=== PATIENT | male | born 1985 | race Caucasian/White ===

== ENCOUNTER 2022-08-09 12:19 | Emergency (ER) | payer OTHER ==
--- OUTSIDE RECORDS SUMMARY | 2022-08-09 12:23 | XMS REPORT | Continuity of Care Document ---
:1985 Author Organization [facility] t Address [address] [place] [address] Care Team Providers Name Role Phone Sabra Rios Primary Care Physician CHRETIJOHN_F Attending Clinician Unavailable PAULINE Attending Clinician Unavailable Amanda Segundo Attending Clinician [phone] Estee Izaguirre Attending Clinician [phone] Therapy, [facility] Covid Infusion Attending Clinician Unavailable Sam River MD Attending Clinician SAM RIVER Attending Clinician Unavailable Doctor Unassigned, [place] Attending Clinician Unavailable ALBERTO_Dani Attending Clinician Unavailable CHRETIJOHN_F Admitting Clinician Unavailable PAULINE Admitting Clinician Unavailable VERA Admitting Clinician Unavailable Payers Payer Name Policy Type Policy Number Effective Date Expiration Date S jann[place] [id number] 2020 00:00:00 [place] Problems Condition Condition Condition Status Onset Resolution Last Treating Co mments Source Name Details Category Date Date Treatment Clinician Date Vitamin D Vitamin D Problem Active 2018-07 Swe darrell deficiency Deficiency 0-09 Co mmuni 00:00: ty 00 [facility]ita [facility] Hyperlipid Hyperlipid Problem Active 2018-07 S elle emia emia 0-09 Communi 00:00: ty 00 [facility] Clin[facility] Generalize Generalize Problem Active 2017-07 S elle d anxiety d Anxiety 2-21 Comm uni disorder Disorder 00:00: ty 00 [facility]ospita [facility] Clinics Cataract Cataract Problem Active 2017-07 Sween y 1-12 Communi 00:00: ty 00 Hospita l Clinics Allergies, Adverse Reactions, Alerts Allergy Allergy Status Severity Reaction(s) Onset Inactive Treating Comm ents Source Name Type Date Date Clinician AMOXICIL DRUG Active Hives 2020-07 Univers ROJAS-POT 2-16 ity of CLAVULAN 00:00: [place] ATE 00 Medical Branch SULFA Drug Active Hives 2020-07 Univers (SULFONA Class 2-16 ity of MIDE 00:00: [place] ANTIBIOT 00 Medical ICS) Branch Amoxicil Propensi Active Hives 2020-07 Univer s rojas-Pot ty to 2-16 ity of Clavulan adverse 00:00: [place] ate reaction 00 Medical s Branch Sulfa Propensi Active Hives 2020-07 Univers (Sulfona ty to 2-16 ity of mide adverse 00:00: [place] Antibiot reaction 00 Medica l ics) s Branch NO KNOWN Drug Active Univers ALLERGIE Class ity of S [facility] Augmenti Allergy Active Rash [place] n to Communi substanc ty e Hospita l Clinics SULFA Allergy Active Rash [place] (SULFONA to Communi MIDE substanc ty ANTIBIOT e Hospita ICS) l Clinics Social History Social Habit Start Date Stop Date Quantity Comments Source Sex Assigned At [birth year] [facility] 00:00:00 00:00:00 [facility] Smoking Status Start Date Stop Date Source Former Smoker [facility] Unknown if ever smoked [facility] Medications Ordered Filled Start Stop Current Ordering Indication Dosage Frequency Signature Comments Components Source Medication Medication Date Date Medication? Clinician (SIG) Name Name doxycycline doxycycline 2020-07 No doxycyclin [place] hyclate 100 hyclate 100 2-21 e hyclate Communi mg tablet mg tablet 00:00: 100 mg t y TAKE ONE TAKE ONE 00 tablet Hospi ta (1) (1) TAKE ONE l TABLET(S) TABLET(S) (1) Clini cs BY MOUTH BY MOUTH TABLET(S) TWICE A DAY TWICE A DAY BY MOUTH FOR 2 FOR 2 TWICE A WEEKS. WEEKS. DAY FOR 2 WEEKS. casirivimab 2020-07 No [id number] 1200mg 1,200 mg, Univers -imdevimab 08-2416 Subcutaneo it y of (REGEN-COV 23:15: 21:50 [place], ONCE, [place] (EUA[place] 00 :00 1 dose, On Medical injection Faviola Munoz (CO-FORMULA 06/23/21 TION) 1,200 at 1715, mg Routine acetylcyste acetylcyste No 2capsul BID acetylcyst [place] ine 600 mg ine 600 mg e(s) eine 600 Communi capsule capsule mg capsule ty Take 2 Take 2 Take 2 Hospita capsules capsules capsules l twice a day twice a day twice a Clinics by oral by oral day by route. route. oral route. azithromyci azithromyci No azithromyc [place] n 500 mg n 500 mg in 500 mg Co mmuni tablet TAKE tablet TAKE tablet ty ONE (1) ONE (1) TAKE ONE Hospi ta TABLET(S) TABLET(S) (1) l BY MOUTH BY MOUTH TABLET(S) Cl inics ONCE A DAY ONCE A DAY BY MOUTH FOR 5 DAYS. FOR 5 DAYS. ONCE A DAY FOR 5 DAYS. betamethaso betamethaso No betamethas [place] ne ne one Communi dipropionat dipropionat dipropiona ty e 0.05 % e 0.05 % te 0.05 % Ho spita topical topical topical l cream APPLY cream APPLY cream Clinics TO RASH ON TO RASH ON APPLY TO HANDS TWICE HANDS TWICE RASH ON DAILY FOR 2 DAILY FOR 2 HANDS WEEKS PER WEEKS PER TWICE MONTH. MONTH. DAILY FOR OCCLUDE AT OCCLUDE AT 2 WEEKS NIGHTTIME. NIGHTTIME. PER MONTH. OCCLUDE AT NIGHTTIME. chlorthalid chlorthalid No chlorthali [place] one 25 mg one 25 mg done 25 mg Communi tablet TAKE tablet TAKE tablet ty ONE (1) ONE (1) TAKE ONE Hospi ta TABLET(S) TABLET(S) (1) l BY MOUTH BY MOUTH TABLET(S) Cl inics ONCE A DAY. ONCE A DAY. BY MOUTH ONCE A DAY. clobetasol clobetasol No clobetasol [place] 0.05 % 0.05 % 0.05 % Communi topical topical topical ty ointment ointment ointment Hos anali APPLY A APPLY A APPLY A l THIN LAYER THIN LAYER THIN LAYER Clinics TO THE TO THE TO THE HANDS TWICE HANDS TWICE HANDS A DAY FOR 2 A DAY FOR 2 TWICE A WEEKS/MONTH WEEKS/MONTH DAY FOR 2 . . WEEKS/HENRI H. fenofibrate fenofibrate No fenofibrat [place] nanocrystal nanocrystal e C ommuni lized 145 lized 145 nanocrysta ty mg tablet mg tablet llized 145 Hospita TAKE ONE TAKE ONE mg tablet l (1) (1) TAKE ONE Clinics TABLET(S) TABLET(S) (1) BY MOUTH BY MOUTH TABLET(S) ONCE A DAY. ONCE A DAY. BY MOUTH ONCE A DAY. ivermectin ivermectin No ivermectin [place] 3 mg tablet 3 mg tablet 3 mg C ommuni TAKE TWO TAKE TWO tablet ty (2) (2) TAKE TWO Hospita TABLET(S) TABLET(S) (2) l BY MOUTH BY MOUTH TABLET(S) Cl inics TWICE A DAY TWICE A DAY BY MOUTH FOR 5 DAYS. FOR 5 DAYS. TWICE A DAY FOR 5 DAYS. prednisone prednisone No prednisone [place] 20 mg 20 mg 20 mg Communi tablet TAKE tablet TAKE tablet ty ONE (1) ONE (1) TAKE ONE Hospi ta TABLET(S) TABLET(S) (1) l BY MOUTH BY MOUTH TABLET(S) Cl inics TWICE A DAY TWICE A DAY BY MOUTH FOR 5 DAYS. FOR 5 DAYS. TWICE A DAY FOR 5 DAYS. propranolol propranolol No propranolo [place] 40 mg 40 mg l 40 mg Communi tablet Take tablet Take tablet ty 1 tablet 1 tablet Take 1 Hospi ta twice a day twice a day tablet l by oral by oral twice a Clinic s route for route for day by 30 days. 30 days. oral route for 30 days. chlorthalid chlorthalid No chlorthali [place] one 25 mg one 25 mg done 25 mg Communi tablet TAKE tablet TAKE tablet ty ONE (1) ONE (1) TAKE ONE Hospi ta TABLET(S) TABLET(S) (1) l BY MOUTH BY MOUTH TABLET(S) Cl inics TWICE A TWICE A BY MOUTH DAY. DAY. TWICE A DAY. chlorthalid chlorthalid No 1 Q1D chlorthali [place] one 50 mg one 50 mg done 50 mg Communi tablet Take tablet Take tablet ty 1 tablet 1 tablet Take 1 Hospi ta every day every day tablet l by oral by oral every day Clin ics route for route for by oral 90 days. 90 days. route for 90 days. fenofibrate fenofibrate No 1 Q1D fenofibrat [place] nanocrystal nanocrystal e C ommuni lized 145 lized 145 nanocrysta ty mg tablet mg tablet llized 145 Hospita Take 1 Take 1 mg tablet l tablet tablet Take 1 Clinics every day every day tablet by oral by oral every day route for route for by oral 90 days. 90 days. route for 90 days. chlorthalid chlorthalid No chlorthali [place] one 25 mg one 25 mg done 25 mg Communi tablet TAKE tablet TAKE tablet ty ONE (1) ONE (1) TAKE ONE Hospi ta TABLET(S) TABLET(S) (1) l BY MOUTH BY MOUTH TABLET(S) Cl inics TWICE A TWICE A BY MOUTH DAY. DAY. TWICE A DAY. chlorthalid chlorthalid No 1 Q1D chlorthali [place] one 50 mg one 50 mg done 50 mg Communi tablet Take tablet Take tablet ty 1 tablet 1 tablet Take 1 Hospi ta every day every day tablet l by oral by oral every day Clin ics route for route for by oral 90 days. 90 days. route for 90 days. fenofibrate fenofibrate No 1 Q1D fenofibrat [place] nanocrystal nanocrystal e C ommuni lized 145 lized 145 nanocrysta ty mg tablet mg tablet llized 145 Hospita Take 1 Take 1 mg tablet l tablet tablet Take 1 Clinics every day every day tablet by oral by oral every day route for route for by oral 90 days. 90 days. route for 90 days. acetylcyste acetylcyste No 2capsul Q1D acetylcyst [place] ine 600 mg ine 600 mg e(s) eine 600 Communi capsule capsule mg capsule ty Take 2 Take 2 Take 2 Hospita capsules capsules capsules l every day every day every day Clinics by oral by oral by oral route. route. route. Sia Sia No Sia [place] Allergy Allergy Allergy Commun i ty Hospita l Clinics cetirizine cetirizine No 1 Q1D cetirizine [place] 10 mg 10 mg 10 mg Communi tablet Take tablet Take tablet ty 1 tablet 1 tablet Take 1 Hospi ta every day every day tablet l by oral by oral every day Clin ics route for route for by oral 90 days. 90 days. route for 90 days. chlorthalid chlorthalid No chlorthali [place] one 50 mg one 50 mg done 50 mg Communi tablet TAKE tablet TAKE tablet ty ONE (1) ONE (1) TAKE ONE Hospi ta TABLET(S) TABLET(S) (1) l BY MOUTH BY MOUTH TABLET(S) Cl inics ONCE A DAY. ONCE A DAY. BY MOUTH ONCE A DAY. doxycycline doxycycline No 1 BID doxycyclin [place] hyclate 100 hyclate 100 e hyclate Communi mg tablet mg tablet 100 mg ty Take 1 Take 1 tablet Hospita tablet tablet Take 1 l twice a day twice a day tablet Clinics by oral by oral twice a route for route for day by 10 days. 10 days. oral route for 10 days. famotidine famotidine No 1 BID famotidine [place] 20 mg 20 mg 20 mg Communi tablet Take tablet Take tablet ty 1 tablet 1 tablet Take 1 Hospi ta twice a day twice a day tablet l by oral by oral twice a Clinic s route for route for day by 90 days. 90 days. oral route for 90 days. fenofibrate fenofibrate No fenofibrat [place] nanocrystal nanocrystal e C ommuni lized 145 lized 145 nanocrysta ty mg tablet mg tablet llized 145 Hospita TAKE ONE TAKE ONE mg tablet l (1) (1) TAKE ONE Clinics TABLET(S) TABLET(S) (1) BY MOUTH BY MOUTH TABLET(S) ONCE A DAY. ONCE A DAY. BY MOUTH ONCE A DAY. prednisone prednisone No 1 BID prednisone [place] 20 mg 20 mg 20 mg Communi tablet Take tablet Take tablet ty 1 tablet 1 tablet Take 1 Hospi ta twice a day twice a day tablet l by oral by oral twice a Clinic s route for 5 route for 5 day by days. days. oral route for 5 days. Vital Signs Vital Name Observation Time Observation Value Comments Source BP Diastolic 2021-10-06 00:00:00 83 mm[Hg] [facility] s Height 2021-10-06 00:00:00 74 [in_i] [facility] s BMI (Body Mass 2021-10-06 00:00:00 28.3 kg/m2 [facility] s BP Systolic 2021-10-06 00:00:00 130 mm[Hg] [facility] s Body Weight 2021-10-06 00:00:00 3529.6 [oz_av] [facility] s BP Diastolic 2021-09-09 00:00:00 78 mm[Hg] [facility] s Height 2021-09-09 00:00:00 74 [in_i] [facility] s BMI (Body Mass 2021-09-09 00:00:00 30.7 kg/m2 [facility]) [facility] s BP Systolic 2021-09-09 00:00:00 124 mm[Hg] [facility] s Body Weight 2021-09-09 00:00:00 3827.2 [oz_av] [facility] s BP Diastolic 2021-07-06 00:00:00 101 mm[Hg] [facility] s Height 2021-07-06 00:00:00 74 [in_i] [facility] s BMI (Body Mass 2021-07-06 00:00:00 34.4 kg/m2 [facility]) [facility] s BP Systolic 2021-07-06 00:00:00 144 mm[Hg] [facility] s Body Weight 2021-07-06 00:00:00 4288 [oz_av] [facility] s Systolic blood 2021-06-23 22:40:00 166 mm[Hg] Univer sity of pressure [facility] Diastolic blood 2021-06-23 22:40:00 106 mm[Hg] Unive rsity of pressure [facility] Heart rate 2021-06-23 22:40:00 92 /min [facility] Body temperature 2021-06-23 22:40:00 [facility].11 [facility] Res[facility] 2021-06-23 22:40:00 18 /min [facility] Oxygen saturation in 2021-06-23 22:40:00 95 /min [facility] Arterial blood by [facility] Pulse oximetry Branch Body height 2021-06-23 21:51:00 188 cm [facility] Body weight 2021-06-23 21:51:00 113.399 kg [facility] BMI 2021-06-23 21:51:00 32.10 kg/m2 [facility] Procedures Procedure Date / Time Performing Clinician Source Performed [id number] CONSENT 2021-06-23 06:01:00 Doctor Unassigned, [facility] [place] [facility] Branch Exc Tr-ext B9+Cortney 0.5 Cm< [facility] Cholecystectomy [facility] Removal of Spleen Total [facility] Plan of Care Planned Activity Planned Date Details Comments Source Diagnostic Test Pending 2021-09-09 CBC w/ auto diff [facility] 00:00:00 [code = CBC w/ Hospital Clin ics auto diff] Diagnostic Test Pending 2021-09-09 CMP, serum or [facility] 00:00:00 plasma [code = Hospital Clin ics CMP, serum or plasma] Diagnostic Test Pending 2021-09-09 TSH, serum or [facility] 00:00:00 plasma [code = Hospital Clin ics TSH, serum or plasma] Diagnostic Test Pending 2021-09-09 lipid panel, [facility] 00:00:00 serum [code = Hospital Clini cs lipid panel, serum] Diagnostic Test Pending 2021-09-09 vitamin D, [facility] 00:00:00 25-hydroxy, [facility] s total, serum [code = vitamin D, 25-hydroxy, total, serum] Diagnostic Test Pending 2021-09-09 testosterone, [facility] 00:00:00 total, serum [facility] s [code = testosterone, total, serum] Instructions [facility] s Encounters Start End Encounter Admission Attending Care Care Encounter Source Date/Time Date/Time Type Type Clinicians Facility Department ID 2022-01-04 2022-01-04 Outpatient CHRETIEN_F [facility] [id number] [place] 05:46:00 05:46:00 629 Commun i ty Hospita l Clinics 2021-10-06 2021-10-06 Outpatient SANYA_S [facility] [id number] [place] 05:24:00 05:24:00 331 Commun i ty Hospita l Clinics 2021-10-06 2021-10-06 Outpatient Sanya [facility] [id number] 00:00:00 00:00:00 Amanda [id number] 2021-10-06 2021-10-06 Amanda [facility] [place] - Holden Holden 00:00:00 00:00:00 [facility] uni 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 2021-06-23 2021-06-23 Nurse Therapy, Adc Covid Infusion [facility] [id number] Univers 16:00:00 17:00:00 Visit Sam River [id number] ity [facility] [id number] [phone] [place] [id number] Branch 2021-06-23 2021-06-23 Outpatient Billie [facility] [id number] Univers 16:00:00 16:00:00 SAM [facility] 2021-06-23 2021-06-23 Orders Doctor SUBRAMANIAN [id number] Univers 00:00:00 00:00:00 Only Unassigned, GENNA [id number] ity of [place] [facility] [id number] Roni as [id number] [place] [address] Branch 2020-05-28 2020-05-28 Outpatient [facility] [id number] [place] 02:17:00 02:17:00 _L 120 Commun i ty Hospita l Clinics Results Test Description Test Time Test Comments Results Result Comments Source Lipid 1996 panel - Serum or Plasma 2021-09-10 00:00:00 Test Item Value Reference Range Interpretation Comme nts Cholesterol [Mass/volume] in Serum or Plasma (test code = 132 mg/dL [id number] 4442-3) Triglyceride [Mass/volume] in Serum or Plasma (test code = 89 mg/dL 0-149 2571-8) Cholesterol in HDL [Mass/volume] in Serum or Plasma (test code 36 m g/dL >39 L = 5-9) Cholesterol in VLDL [Mass/volume] in Serum or Plasma by 17 mg/dL 5-40 calculation (test code = 26310-5) Cholesterol in LDL [Mass/volume] in Serum or Plasma by 79 mg/dL 0-99 calculation (test code = 98520-6) Laboratory comment [Text] in Report Narrative (test code = marine engineering technicians 97525-5) Cholesterol in LDL/Cholesterol in HDL [Mass Ratio] in Serum or 2.2 ratio 0.0-3.6 Plasma (test code = 46446-9) [facility]emoglobin.total in Blood 2021-09-10 00:00:00 Test Item Value Reference Range Interpretation Comments Hemoglobin A1c/Hemoglobin.total in 5.7 % 4.8-5.6 H Blood (test code = 4548-4) [facility]Mass/volume] in Serum or Plasma 2021-09-10 00:00:00 Test Item Value Reference Range Interpretation Comments Testosterone [Mass/volume] in Serum 452 NG/dL 264-916 or Plasma (test code = 2986-8) [facility] free [Mass/volume] in Serum or [id number] 00:00:00 Test Item Value Reference Range Interpretation Comments Thyroxine (T4) free [Mass/volume] 1.50 NG/dL 0.82-1.77 in Serum or Plasma (test code = 3024-7) [facility] [Units/volume] in Serum or Plasma by Detection limit <= 0.005 mIU/[id number] 00:00:00 Test Item Value Reference Range Interpretation Comments Thyrotropin [Units/volume] in 2.430 uIU/mL 0.450-4.500 Serum or Plasma by Detection limit <= 0.005 mIU/L (test code = 09135-2) [facility]25-Hydroxyvitamin D3+25-Hydroxyvitamin D2 [Mass/volume] in Serum or [id number] 00:00:00 Test Item Value Reference Range Interpretation Comments 25-Hydroxyvitamin 48.4 NG/mL 30.0-100.0 D3+25-Hydroxyvitamin D2 [Mass/volume] in Serum or Plasma (test code = 27516-1) [facility] W Auto Differential panel - [id number] 00:00:00 Test Item Value Reference Range Interpretation Comments Leukocytes [#/volume] in Blood 7.5 x10e3/uL 3.4-10.8 by Automated count (test code = 6690-2) Erythrocytes [#/volume] in 5.21 x10e6/uL 4.14-5.80 Blood by Automated count (test code = 789-8) Hemoglobin [Mass/volume] in 15.8 g/dL 13.0-17.7 Blood (test code = 718-7) Hematocrit [Volume Fraction] of 47.2 % 37.5-51.0 Blood by Automated count (test code = 4544-3) Erythrocyte mean corpuscular 91 fL 79-97 volume [Entitic volume] by Automated count (test code = 787-2) MCH [Entitic mass] by Automated 30.3 pg 26.6-33.0 count (test code = 785-6) Erythrocyte mean corpuscular 33.5 g/dL 31.5-35.7 hemoglobin concentration [Mass/volume] by Automated count (test code = 786-4) Erythrocyte distribution width 13.6 % 11.6-15.4 [Ratio] by Automated count (test code = 788-0) Platelets [#/volume] in Blood 449 x10e3/uL 150-450 by Automated count (test code = 777-3) Neutrophils/100 leukocytes in 33 % not estab. Blood by Automated count (test code = 770-8) Lymphocytes/100 leukocytes in 53 % not estab. Blood by Automated count (test code = 736-9) Monocytes/100 leukocytes in 11 % not estab. Blood by Automated count (test code = 5905-5) Eosinophils/100 leukocytes in 2 % not estab. Blood by Automated count (test code = 713-8) Basophils/100 leukocytes in 1 % not estab. Blood by Automated count (test code = 706-2) immature cells (test code = marine engineering technicians immature cells) Neutrophils [#/volume] in Blood 2.5 x10e3/uL 1.4-7.0 by Automated count (test code = 751-8) Lymphocytes [#/volume] in Blood 3.9 x10e3/uL 0.7-3.1 H by Automated count (test code = 731-0) Monocytes [#/volume] in Blood 0.8 x10e3/uL 0.1-0.9 by Automated count (test code = 742-7) Eosinophils [#/volume] in Blood 0.2 x10e3/uL 0.0-0.4 by Automated count (test code = 711-2) Basophils [#/volume] in Blood 0.1 x10e3/uL 0.0-0.2 by Automated count (test code = 704-7) Immature granulocytes/100 0 % not estab. leukocytes in Blood by Automated count (test code = 55489-1) Immature granulocytes 0.0 x10e3/uL 0.0-0.1 [#/volume] in Blood by Automated count (test code = 69758-2) Nucleated erythrocytes/100 marine engineering technicians leukocytes [Ratio] in Blood by Automated count (test code = 62730-2) Morphology [Interpretation] in marine engineering technicians Blood Narrative (test code = 00269-2) [facility] 2000 panel - Serum or [id number] 00:00:00 Test Item Value Reference Range Interpretation Comments Glucose [Mass/volume] in Serum 101 mg/dL 65-99 H or Plasma (test code = 2345-7) Urea nitrogen [Mass/volume] in 17 mg/dL 6-20 Serum or Plasma (test code = 3094-0) Creatinine [Mass/volume] in 1.11 mg/dL 0.76-1.27 Serum or Plasma (test code = 2160-0) eGFR (test code = eGFR) 88 mL/min/1.73 >59 Urea nitrogen/Creatinine [Mass 15 9-20 Ratio] in Serum or Plasma (test code = 3097-3) Sodium [Moles/volume] in Serum 140 mmol/L 134-144 or Plasma (test code = 2951-2) Potassium [Moles/volume] in 4.2 mmol/L 3.5-5.2 Serum or Plasma (test code = 2823-3) Chloride [Moles/volume] in 96 mmol/L 96-106 Serum or Plasma (test code = 5-0) Carbon dioxide, total 25 mmol/L 20-29 [Moles/volume] in Serum or Plasma (test code = 2027-9) Calcium [Mass/volume] in Serum 9.8 mg/dL 8.7-10.2 or Plasma (test code = 48780-1) Protein [Mass/volume] in Serum 7.3 g/dL 6.0-8.5 or Plasma (test code = 2885-2) Albumin [Mass/volume] in Serum 4.6 g/dL 4.0-5.0 or Plasma (test code = 1751-7) Globulin [Mass/volume] in 2.7 g/dL 1.5-4.5 Serum by calculation (test code = 58073-3) Albumin/Globulin [Mass Ratio] 1.7 1.2-2.2 in Serum or Plasma (test code = 1759-0) Bilirubin.total [Mass/volume] 0.5 mg/dL 0.0-1.2 in Serum or Plasma (test code = 1974-) Alkaline phosphatase 41 IU/L 44-121 L [Enzymatic activity/volume] in Serum or Plasma (test code = 6768-6) Aspartate aminotransferase 20 IU/L 0-40 [Enzymatic activity/volume] in Serum or Plasma (test code = 1920-8) Alanine aminotransferase 27 IU/L 0-44 [Enzymatic activity/volume] in Serum or Plasma (test code = 1742-6) [facility]
[2022-08-09] MEDS ORDERED: NA CHLORIDE 0.9% 1,000 ML ONE ×3 (12:56→17:15)
[2022-08-09 13:22] LABS: Absolute Lymphocytes (CBC) 2.6 K/uL (0.7-4.9); Hematocrit 43.3 % (39.6-49.0); Lymphocytes % 15.5 % (15.3-44.8); MCV 91.8 fL (80-100); MPV 8.4 fL (7.6-11.3); RBC Red Blood Cell Count 4.71 M/uL (4.33-5.43)
[2022-08-09 13:38] LABS: Albumin 2.3 g/dL (3.4-5.0); Bilirubin Total 0.4 mg/dL (0.2-1.0); Potassium 3.4 mmol/L (3.5-5.1); Protein, Total 6.8 g/dL (6.4-8.2)
[2022-08-09 13:58] LABS: SARS-COV-2 RT PCR NEGATIVE (NEGATIVE)
--- NOTE | 2022-08-09 15:11 | RAD REPORT ---
EXAM DESCRIPTION: CT - Abdomen Pelvis Wo Contrast - 08/09/2022 2:36 pm CLINICAL HISTORY: Abdominal pain left upper quadrant pain COMPARISON: 2016 TECHNIQUE: Computed axial tomography of the abdomen and pelvis was obtained. IV and oral contrast we re not requested. All CT scans are performed using dose optimization technique as appropriate and may include automated exposure control or mA/KV adjustment according to patient size. FINDINGS: The evaluation of solid organs, vessels and bowel is limited secondary to the lack of con trast administration. Splenectomy. The liver, pancreas, adrenals and kidneys appear grossly normal. The appendix is normal. There is no evidence of diverticulitis. Moderate left inguinal hernia contains fat IMPRESSION: No acute abnormality is displayed.
[2022-08-09 15:18] LABS: Blood Morphology Comment NOT SEEN (NOT SEEN); Platelet Estimate ADEQ
[2022-08-09] MEDS ORDERED: dexAMETHasone 10 MG/ML VIAL ONE (15:19)
[2022-08-09] MEDS ORDERED: MAGNES/ALUMIN/SIMET 30ML UCUP ONE (17:14)
[2022-08-09] MEDS ORDERED: ONDANSETRON 4 MG/2 ML VIAL ONE (17:14)
[2022-08-09] MEDS ORDERED: LIDOCAINE VISCOUS 2% SOLN 15 ML UDC ONE (17:14)
--- NOTE | 2022-08-09 17:21 | EDPHYS ---
Physician Documentation [facility] Name: Rodrigo Hou Age: 37 yrs Sex: Male : 1985 Arrival Date: 08/09/2022 Time: 12:22 Bed DIS1 Private MD: ED Physician Yao Duncan HPI: 08/09 12:47 This 37 yrs old Male presents to ER via Ambulatory with complaints of fatigue, Sore pm1 Throat - tonsillitis. 12:47 The patient presents with sore throat. The patient describes throat pain as raw, pm1 scratchy. Onset: The symptoms/episode began/occurred 6 day(s) ago. Severity of symptoms: in the emergency department the symptoms are unchanged. Modifying factors: Denies contact with similarly ill indivduals. Associated signs and symptoms: Pertinent positives: Poor p.o. intake, abdominal pain left upper quadrant. Patient reports black stool this morning 1 time. Patient took Pepto-Bismol for his abdominal pain recently, Pertinent negatives cough, fever. The patient has not experienced similar symptoms in the past. Patient was prescribed antibiotics on Sunday for a diagnosis of tonsillitis. Presented to the ER due to concerns that he has not improved after 2 days as expected of antibiotics. Patient was tested for strep COVID and flu at the clinic on Sunday. 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 - Social history:: Smoking status: Patient denies any tobacco usage or history of. ROS: 12:47 Eyes: Negative for injury, pain, redness, and discharge. pm1 12:47 Neck: Negative for injury, pain, and swelling, Cardiovascular: Negative for chest pain, palpitations, and edema, Respiratory: Negative for shortness of breath, cough, wheezing, and pleuritic chest pain. 12:47 Back: Negative for injury and pain, : Negative for injury, bleeding, discharge, and swelling, MS/Extremity: Negative for injury and deformity, Skin: Negative for injury, rash, and discoloration, Neuro: Negative for headache, weakness, numbness, tingling, and seizure. 12:47 Constitutional: Positive for fatigue, poor PO intake. 12:47 ENT: Positive for sore throat. 12:47 Abdomen/GI: Positive for abdominal pain, of the left upper quadrant, Nausea with eating, Negative for vomiting, diarrhea. 12:47 All other systems are negative. Exam: 12:47 Constitutional: This is a well developed, well nourished patient who is awake, alert, pm1 and in no acute distress. Head/Face: Normocephalic, atraumatic. 12:47 Back: No spinal tenderness. No costovertebral tenderness. Full range of motion. Skin: Warm, dry with normal turgor. Normal color with no rashes, no lesions, and no evidence of cellulitis. MS/ Extremity: Pulses equal, no cyanosis. Neurovascular intact. Full, normal range of motion. 12:47 Eyes: Exam is negative for acute changes, Periorbital structures: no acute changes, Extraocular movements: no acute changes, Conjunctiva: no acute changes, no injection. 12:47 ENT: Posterior pharynx: Airway: no evidence of obstruction, Tonsils: bilaterally enlarged, with erythema, with exudate, no ulcerations, peritonsillar mass, is not appreciated. 12:47 Neck: Lymph nodes: no appreciated lymphadenopathy. 12:47 Cardiovascular: Rate: tachycardic, Rhythm: regular, Pulses: no pulse deficits are appreciated, Heart sounds: normal, normal S1and S2. 12:47 Respiratory: Exam negative for acute changes, respiratory distress, shortness of breath, Breath sounds: are clear throughout. 12:47 Neuro: Exam negative for acute changes, Orientation: is normal, Mentation: is normal, Motor: is normal, moves all fours. Vital Signs: 12:25 BP 102 / 63; Pulse 119; Resp 20; Temp 99.0(O); Pulse Ox 97% on R/A; Weight 113.4 kg; ll1 Height 6 ft. 2 in. (187.96 cm); Pain 7/10; 13:20 BP 115 / 77; Pulse 95; Resp 18; Pulse Ox 97% on R/A; vg1 14:00 BP 120 / 78; Pulse 85; Resp 16; Pulse Ox 97% on R/A; vg1 15:15 BP 126 / 80; Pulse 87; Resp 14; Pulse Ox 98% ; vg1 15:25 Temp 98.3(O); vg1 16:00 BP 127 / 80; Pulse 86; Resp 15; Pulse Ox 100% on R/A; vg1 16:30 BP 140 / 85; Pulse 81; Resp 16; Pulse Ox 96% ; vg1 17:00 BP 131 / 90; Pulse 88; Resp 16; Pulse Ox 97% on R/A; vg1 17:12 BP 132 / 92; Pulse 95; Resp 16; Pulse Ox 98% on R/A; vg1 12:25 Body Mass Index 32.10 (113.40 kg, 187.96 cm) ll1 MDM: 12:30 Patient medically screened. pm1 14:30 Data reviewed: vital signs. pm1 14:30 Counseling: I had a detailed discussion with the patient and/or guardian regarding: lab pm1 results, reexamined abdomen and patient with tenderness to left upper quadrant. 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 With elevated white count will scan abdomen pelvis without contrast due to dehydration present. Will give patient additional IV fluids. Patient responded well to initial 1 L, tachycardia resolved to heart rate in the 80s. 14:30 Test considered but Not performed: Other Details CT soft tissue neck. Patient without pm1 peritonsillar swelling. Negative for shortness of breath. Patient is able to swallow. Negative for trismus, drooling, or swelling. Clinically patient has tonsillitis. 14:30 Differential diagnosis: pharyngitis, tonsillitis, strep, retropharyngeal abscess, pm1 peritonsillar abscess. 17:03 Counseling: I had a detailed discussion with the patient and/or guardian regarding: the pm1 historical points, exam findings, and any diagnostic results supporting the discharge/admit diagnosis, lab results, radiology results, the need for outpatient follow up, to return to the emergency department if symptoms worsen or persist or if there are any questions or concerns that arise at home. 08/09 12:46 Order name: Strep; Complete Time: 14:13 pm1 08/09 12:46 Order name: COVID-19/FLU A+B; Complete Time: 14:13 pm1 08/09 12:46 Order name: CBC with Diff; Complete Time: 15:31 pm1 08/09 12:46 Order name: CMP; Complete Time: 14:13 pm1 08/09 12:46 Order name: [place] Screen Profile; Complete Time: 14:13 pm1 08/09 13:39 Order name: Throat Culture EDMS 08/09 14:24 Order name: CT Abd/Pelvis - Without Contrast; Complete Time: 15:31 pm1 08/09 15:18 Order name: Manual Differential; Complete Time: 15:31 EDMS Administered Medications: 13:19 Drug: NS 0.9% 1000 ml Route: IV; Rate: 1000 ml; Site: right hand; vg1 14:08 Follow up: IV Status: Completed infusion; IV Intake: 1000ml vg1 14:25 Drug: NS 0.9% 1000 ml Route: IV; Rate: 1000 ml; Site: right hand; vg1 16:13 Follow up: IV Status: Completed infusion; IV Intake: 1000ml vg1 15:18 Drug: Decadron (dexamethasone) 10 mg Route: IM; Site: right deltoid; vg1 16:12 Follow up: Response: No adverse reaction vg1 17:14 Drug: GI Cocktail without - (Maalox Suspension 30 ml, Lidocaine Liquid 2 % 15 vg1 ml) Route: PO; 18:25 Follow up: Response: No adverse reaction; Marked relief of symptoms vg1 17:15 Drug: NS 0.9% 1000 ml Route: IV; Rate: 1000 ml; Site: right hand; vg1 18:25 Follow up: IV Status: Completed infusion; IV Intake: 1000ml vg1 17:15 Drug: Zofran (Ondansetron) 4 mg Route: IVP; Site: right hand; vg1 18:25 Follow up: Response: No adverse reaction; Marked relief of symptoms vg1 Disposition: 18:39 Co-signature as Attending Physician, Yao Duncan MD I agree with the assessment and kdr plan of care. Disposition Summary: 08/09/22 17:21 Discharge Ordered Location: Home pm1 Problem: new pm1 Symptoms: have improved pm1 Condition: Stable pm1 Diagnosis - Acute tonsillitis, unspecified pm1 - Abdominal pain, unspecified pm1 - Dehydration pm1 Followup: pm1 - With: Emergency Department - When: As needed - Reason: Worsening of condition Followup: pm1 - With: Private Physician - When: 2 - 3 days - Reason: Recheck today's complaints, Continuance of care, Re-evaluation by your physician Discharge Instructions: - Discharge Summary Sheet pm1 - Abdominal Pain, Adult pm1 - Dehydration, Adult pm1 - Tonsillitis pm1 - Rehydration, Adult pm1 Forms: - Medication Reconciliation Form pm1 - Thank You Letter pm1 - Antibiotic Education pm1 - Prescription Opioid Use pm1 Prescriptions: - ondansetron 4 mg Oral - take 4 milligrams by SUBLINGUAL route every 8 hours; 15 tablet; Refills: 0, pm1 Product Selection Permitted Signatures: Dispatcher [employer] EDCA Yao Duncan MD MD kdr Marinas, Patrick, NP COMPUTATIONAL SCIENTIST pm1 Gilda Valle RN RN vg1 Andrea Machuca RN RN ll1
--- NOTE | 2022-08-09 17:21 | ER ---
Nurse's Notes [facility] Name: Rodrigo Hou Age: 37 yrs Sex: Male : 1985 Arrival Date: 08/09/2022 Time: 12:22 Bed DIS1 Private MD: Diagnosis: Acute tonsillitis, unspecified;Abdominal pain, unspecified;Dehydration Presentation: 08/09 12:25 Chief complaint: Patient states: Fatigue, sore throat, fever since Sunday. On ll1 antibiotics since Sunday, not better yet. Black stool and abd pains noted today. No appetite. Coronavirus screen: Vaccine status: Patient reports receiving the 2nd dose of the covid vaccine. Client denies travel out of the [place] in the last 14 days. fatigue, fever, headache, sore throat, Client presents with at least one sign or symptom that may indicate coronavirus-19. Standard/surgical mask placed on the client. Ebola Screen: Patient denies travel to an Ebola-affected area in the 21 days before illness onset. Initial Sepsis Screen: Does the patient meet any 2 criteria? HR > 90 bpm. No. Patient's initial sepsis screen is negative. Does the patient have a suspected source of infection? Yes: Other: throat. Risk Assessment: Do you want to hurt yourself or someone else? Patient reports no desire to harm self or others. Onset of symptoms was August 04, 2022. 12:25 Method Of Arrival: Ambulatory [facility] 12:25 Acuity: AQUILES 2 ll1 Triage Assessment: 12:29 General: Appears uncomfortable, ill, Behavior is calm, cooperative, appropriate for [facility] age. Pain: Complains of pain in throat Pain currently is 7 out of 10 on a pain scale. Quality of pain is described as aching. EENT: Reports pain when swallowing. Neuro: Reports weakness. Cardiovascular: Reports fatigue, palpitations. GI: Reports black stool today. 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 - Social history:: Smoking status: Patient denies any tobacco usage or history of. Screenin:40 [facility] ED Fall Risk Assessment (Adult) History of falling in the last 3 months, vg1 including since admission No falls in past 3 months (0 pts) Confusion or Disorientation No (0 pts) Intoxicated or Sedated No (0 pts) Impaired Gait No (0 pts) Mobility Assist Device Used No (0 pt) Altered Elimination No (0 pt) Score/Fall Risk Level 0 - 2 = Low Risk Oriented to surroundings, Maintained a safe environment, Educated pt \T\ family on fall prevention, incl call for assistance when getting out of bed, Assessed \T\ reinforced patient's understanding of fall precautions. Abuse screen: Denies threats or abuse. Denies injuries from another. Nutritional screening: No deficits noted. Tuberculosis screening: No symptoms or risk factors identified. Assessment: 12:40 General: Appears in no apparent distress. uncomfortable, Behavior is calm, cooperative. vg1 Pain: Complains of pain in epigastric area and left upper quadrant, left flank, throat Pain currently is 7 out of 10 on a pain scale. Pain began 2-3 days ago. Neuro: Level of Consciousness is awake, alert, obeys commands, Oriented to person, place, time, situation. Cardiovascular: Patient's skin is warm and dry. Respiratory: Airway is patent Respiratory effort is even, unlabored, Breath sounds are clear bilaterally. GI: Abdomen is tender to palpation in epigastric area and left upper quadrant Reports nausea, Patient currently denies vomiting. : No signs and/or symptoms were reported regarding the genitourinary system. EENT: Throat is reddened has enlarged tonsils bilaterally with gag reflex present. Derm: Skin is pink, warm \T\ dry. Musculoskeletal: Circulation, motion, and sensation intact. 14:08 Reassessment: Patient appears in no apparent distress at this time. No changes from vg1 previously documented assessment. Patient and/or family updated on plan of care and expected duration. Pain level reassessed. Patient is alert, oriented x 3, equal unlabored respirations, skin warm/dry/pink. 15:21 Reassessment: Patient appears in no apparent distress at this time. Patient and/or vg1 family updated on plan of care and expected duration. Pain level reassessed. Patient is alert, oriented x 3, equal unlabored respirations, skin warm/dry/pink. Patient states feeling better. 16:16 Reassessment: Patient appears in no apparent distress at this time. No changes from vg1 previously documented assessment. Patient and/or family updated on plan of care and expected duration. Pain level reassessed. Patient is alert, oriented x 3, equal unlabored respirations, skin warm/dry/pink. 17:19 Reassessment: Patient appears in no apparent distress at this time. No changes from vg1 previously documented assessment. Patient is alert, oriented x 3, equal unlabored respirations, skin warm/dry/pink. 17:23 Reassessment: Pt up for d/c, currently waiting for IV fluids to complete. vg1 18:25 Reassessment: Patient appears in no apparent distress at this time. Patient and/or vg1 family updated on plan of care and expected duration. Pain level reassessed. Patient is alert, oriented x 3, equal unlabored respirations, skin warm/dry/pink. Patient denies pain at this time. Patient states feeling better. Vital Signs: 12:25 BP 102 / 63; Pulse 119; Resp 20; Temp 99.0(O); Pulse Ox 97% on R/A; Weight 113.4 kg; ll1 Height 6 ft. 2 in. (187.96 cm); Pain 7/10; 13:20 BP 115 / 77; Pulse 95; Resp 18; Pulse Ox 97% on R/A; vg1 14:00 BP 120 / 78; Pulse 85; Resp 16; Pulse Ox 97% on R/A; vg1 15:15 BP 126 / 80; Pulse 87; Resp 14; Pulse Ox 98% ; vg1 15:25 Temp 98.3(O); vg1 16:00 BP 127 / 80; Pulse 86; Resp 15; Pulse Ox 100% on R/A; vg1 16:30 BP 140 / 85; Pulse 81; Resp 16; Pulse Ox 96% ; vg1 17:00 BP 131 / 90; Pulse 88; Resp 16; Pulse Ox 97% on R/A; vg1 17:12 BP 132 / 92; Pulse 95; Resp 16; Pulse Ox 98% on R/A; vg1 12:25 Body Mass Index 32.10 (113.40 kg, 187.96 cm) 1 ED Course: 12:22 Patient arrived in ED. as 12:23 Mario Luna NP is PHCP. pm1 12:23 Yao Duncan MD is Attending Physician. pm1 12:28 Triage completed. ll1 12:29 Arm band placed on Patient placed in an exam room, on a stretcher. ll1 12:30 Gilda Valle RN is Primary Nurse. vg1 12:40 Patient has correct armband on for positive identification. Bed in low position. Call vg1 light in reach. Side rails up X 1. Adult w/ patient. Pulse ox on. NIBP on. 12:40 No provider procedures requiring assistance completed. vg1 13:00 Missed attempt(s): 20 gauge in right antecubital area. vg1 13:19 Inserted saline lock: 20 gauge in right hand, using aseptic technique. ,using aseptic vg1 technique. completed by [facility] stocking inspector. 14:37 CT Abd/Pelvis - Without Contrast In Process Unspecified. EDMS 18:26 IV discontinued, intact, bleeding controlled, No redness/swelling at site. Pressure vg1 dressing applied. Administered Medications: 13:19 Drug: NS 0.9% 1000 ml Route: IV; Rate: 1000 ml; Site: right hand; vg1 14:08 Follow up: IV Status: Completed infusion; IV Intake: 1000ml vg1 14:25 Drug: NS 0.9% 1000 ml Route: IV; Rate: 1000 ml; Site: right hand; vg1 16:13 Follow up: IV Status: Completed infusion; IV Intake: 1000ml vg1 15:18 Drug: Decadron (dexamethasone) 10 mg Route: IM; Site: right deltoid; vg1 16:12 Follow up: Response: No adverse reaction vg1 17:14 Drug: GI Cocktail without - (Maalox Suspension 30 ml, Lidocaine Liquid 2 % 15 vg1 ml) Route: PO; 18:25 Follow up: Response: No adverse reaction; Marked relief of symptoms vg1 17:15 Drug: NS 0.9% 1000 ml Route: IV; Rate: 1000 ml; Site: right hand; vg1 18:25 Follow up: IV Status: Completed infusion; IV Intake: 1000ml vg1 17:15 Drug: Zofran (Ondansetron) 4 mg Route: IVP; Site: right hand; vg1 18:25 Follow up: Response: No adverse reaction; Marked relief of symptoms vg1 Medication: 12:40 VIS not applicable for this client. vg1 Intake: 14:08 IV: 1000ml; Total: 1000ml. vg1 16:13 IV: 1000ml; Total: 2000ml. vg1 18:25 IV: 1000ml; Total: 3000ml. vg1 Outcome: 17:21 Discharge ordered by . pm1 18:26 Discharged to home ambulatory, with family. vg1 18:26 Condition: good 18:26 Discharge instructions given to patient, Instructed on discharge instructions, follow up and referral plans. medication usage, Demonstrated understanding of instructions, follow-up care, medications, Prescriptions given X 1. 18:27 Patient left the ED. vg1 Signatures: Dispatcher [employer] EDMS Eliza Kaiser Patrick, NP HAZARDOUS WASTE MANAGEMENT SPECIALIST pm1 Gilda Valle RN RN vg1 Andrea Machuca RN RN ll1 Corrections: (The following items were deleted from the chart) 12:35 12:25 BP 102 / 63; Pulse 119bpm; Resp 20bpm; Pulse Ox 97% RA; Temp 99.0F; 113.4 kg; ll1 Height 6 ft. 2 in.; BMI: 32.1; Pain 7/10; ll1 17:23 17:12 BP 132 / 292; Pulse 95bpm; Resp 16bpm; Pulse Ox 98% RA; vg1 vg1
[2022-08-09 19:14] VITALS: TEMP 98.3
[2022-08-09 19:19] VITALS: BP 132/92; O2SAT 98
[2022-08-09] MEDS ORDERED: HYDRALAZINE HCL 20 MG/ML VIAL ONE (19:47)
== END 2022-08-09 18:27 | disposition home or self-care (01) ==
LOC: ER 12:19
DX: J03.90 Acute tonsillitis, unspecified (principal); E86.0 Dehydration; R10.12 Left upper quadrant pain; Z20.822 Contact with and (suspected) exposure to COVID-19; Z88.1 Allergy status to other antibiotic agents; Z88.2 Allergy status to sulfonamides
CPT/HCPCS: 87070; 85025; 36415; 86308; 87081; 80053; 0240U; 74176; J0360; J1100; J7030 ×3; J2405

== ENCOUNTER → 2023-08-29 | Emergency (ER) | payer OTHER ==
[~2023-08-29] MED LIST: KETOROLAC 30 MG/ML INJ ONE; MORPHINE 4 MG/ML SYR ONE; NA CHLORIDE 0.9% 1,000 ML ONE; ONDANSETRON 4 MG/2 ML VIAL ONE; methocarbamoL 500 MG TAB ONE
--- OUTSIDE RECORDS SUMMARY | 2023-08-29 14:25 | XMS REPORT | Continuity of Care Document ---
Author Name Unknown Address [address] [facility] [address] [place] [address] [facility] Address [address] [facility] [address] [place] [address] Care Team Providers Care Bottom Polisher Name Role Phone Sabra Rios Primary Care Physician + [phone] CLARK PEREZ Attending Clinician Unava CHINEDU Wills Attending Clinician Unavailable BARI RAMOS Attending Clinician Unavailable LAB90 Attending Clinician Unavailable CHRETIEN_F Attending Clinician Unavailable SANYA_Amberly Attending Clinician Unavailable Amanda Segundo Attending Clinician [phone] Estee Izaguirre Attending Clinician [phone] Therapy, [facility] Attending Clinician Unavailable Sam River MD Attending Clinician [phone] SAM RIVER Attending Clinician Unavailable Doctor Unassigned, [place] Attending Clinician U navailable ALBERTO_L Attending Clinician Unavailable CHRETIEN_F Admitting Clinician Unavailable SANYA_S Admitting Clinician Unavailable ALBERTO_Dani Admitting Clinician Unavailable Payers Payer Name Policy Type Policy Number Effective Date Expirati on Date Source AETNA 2 [id number] 2023 00:00:00 CIGNA 2 [id number] 2022 00:00:[place] [id number] 2020 00:00:00 Problems Condition Name Condition Details Condition Category Status Onset Date Resolution Date Last Treatment Date Treating Clinician Comments Source Anxiety Anxiety Disease Active 09-27 00:00: 00 Kiah Semeliaold - Externa l Prediabete s Prediabete s Disease Active 08-30 00:00: 00 Kiah Diaold - Externa l Elevated platelet count Elevated platelet count Disease Active 08-30 00:00: 00 Kiah Diaold - Externa l Dyspnea on exertion Dyspnea on exertion Disease Active 08-23 00:00: 00 Kiah Diaold - Externa l Renal insufficie ncy Renal insufficie ncy Disease Active 08-23 00:00: 00 Kiah Seybold - Externa l Class 1 obesity due to excess calories without serious comorbidit y with body mass index (BMI) of 33.0 to 33.9 in adult Class 1 obesity due to excess calories without serious comorbidit y with body mass index (BMI) of 33.0 to 33.9 in adult Disease Active 08-16 00:00: 00 Kiah Diaold - Externa l Class 1 obesity due to excess calories without serious comorbidit y with body mass index (BMI) of 33.0 to 33.9 in adult Class 1 obesity due to excess calories without serious comorbidit y with body mass index (BMI) of 33.0 to 33.9 in adult Disease Active 08-16 00:00: 00 Kiah Diaold - Externa l History of ITP History of ITP Disease Active 08-16 00:00: 00 Kiah Aviles - Externa l Primary hypertensi on Primary hypertensi on Disease Active 08-16 00:00: 00 Kiah Diaold - Externa l Mixed hyperlipid emia Mixed hyperlipid emia Disease Active 08-16 00:00: 00 Kiah Diaold - Externa l Acute bacterial conjunctiv itis of both eyes Acute bacterial conjunctiv itis of both eyes Disease Active 08-16 00:00: 00 Kiah Seybold - Externa l Tonsilliti s Tonsilliti s Disease Active 08-16 00:00: 00 Kiah Diaold - Externa l Gastroesop hageal reflux disease without esophagiti s Gastroesop hageal reflux disease without esophagiti s Disease Active 08-16 00:00: 00 Kiah Aviles - Externa l History of splenectom y History of splenectom y Disease Active 08-16 00:00: 00 Kiah Aviles - Externa l Intrinsic eczema Intrinsic eczema Disease Active 08-16 00:00: 00 Kiah Aviles - Externa l Vitamin D deficiency Vitamin D Deficiency Problem Active 2018-07 00:00: 00 [facility] Hyperlipid emia Hyperlipid emia Problem Active 2018-07 00:00: 00 [facility] Generalize d anxiety disorder Generalize d Anxiety Disorder Problem Active 2017-07 00:00: 00 [facility] Cataract Cataract Problem Active 2017-07 00:00: 00 [facility] Allergies, Adverse Reactions, Alerts Allergy Name Allergy Type Status Severity Reaction(s) Onset Date Inactive Date Treating Clinician Comments Source Penicill ins Propensi ty to adverse reaction s Active Hives 08-29 00:00: 00 Kiah Aviles - Externa l Augmenti n Propensi ty to adverse reaction s Active 08-15 00:00: 00 Kiah Aviles - Externa l Sulfa Drugs Propensi ty to adverse reaction s Active 08-15 00:00: 00 Kiah Aviles - Externa l Amoxicil rojas-Pot Clavulan ate Propensi ty to adverse reaction s Active Hives 2020-07 00:00: 00 Kiah Aviles - Externa l AMOXICIL ROJAS-POT CLAVULAN ATE DRUG Active Hives 2020-0716 00:00: 00 [facility] SULFA (SULFONA MIDE ANTIBIOT ICS) Drug Class Active Hives 2020-07 00:00: 00 [facility] Sulfa (Sulfona mide Antibiot ics) Propensi ty to adverse reaction s Active Hives 2020-07 00:00: 00 [facility] Augmenti n Allergy to substanc e Active [facility] SULFA (SULFONA MIDE ANTIBIOT ICS) Allergy to substanc e Active [facility] NO KNOWN ALLERGIE S Drug Class Active [facility] Social History Social Habit Start Date Stop Date Quantity Comments Source History SDOH Alcohol Frequency Kiah manzo - External History SDOH Alcohol Std Drinks Kiah sosa - External History SDOH Alcohol Binge Kiah Aviles - External Sexual orientation Art Aviles - External History of tobacco use Cigarette Smoker Kiah swenson - External Tobacco use and exposure 2023-08-29 00:00:00 2023-08-29 00:00:00 Smokeless tobacco non-user Kiah Aviles - External Alcohol intake 2023-08-29 00:00:00 2023-08-29 00:00:00 Current drinker of alcohol (finding) Kiah Aviles - External Cigarettes smoked current (pack per day) - Reported 2023-08-29 00:00:00 2023-08-29 00:00:00 Kiah Aviles - External Cigarette pack-years 2023-08-29 00:00:00 2023-08-29 00:00:00 Kiah Aviles - External History of Social function 2023-04-08 00:00:00 2023-04-08 00:00:00 Kiah Aviles - External Alcohol Comment 2022-08-16 00:00:00 2022-08-16 00:00:00 socially Kiah Aviles - External Education - What is the highest level of school you have completed or the highest degree you have received? 2022-08-16 00:00:00 2022-08-16 00:00:00 Bachelor's degree (e.g., BA, AB, BS) Kiah Aviles - External Sex Assigned At 1985 00:00:00 1985 00:00:00 Kiah Aviles - External Smoking Status Start Date Stop Date Source Unknown if ever smoked [facility] Ex-smoker 2023-08-29 00:00:00 2023-08-29 00:00:00 Art Aviles - External Medications Ordered Medication Name Filled Medication Name Start Date Stop Date Current Medication? Ordering Clinician Indication Dosage Frequency Signature (SIG) Comments Components Source FLUTICASONE PROPIONATE, NASAL, 50 MCG/ACT nasal Suspension 08-29 13:48: 29 Yes 50ug Use 1 spray (50 mcg total) in each nostril daily. Kiah macias Fexofenadin e (SIA) 180 MG oral Tablet 08-29 13:48: 29 Yes 180mg Take 1 tablet (180 mg total) by mouth. Kiah macias Omeprazole 10 MG oral Delayed Release Capsule 08-29 13:48: 29 Yes 10mg Take 1 capsule (10 mg total) by mouth daily. Kiah macias Dupilumab 100 MG/0.67ML subcutaneou s Solution Prefilled Syringe 08-29 13:48: 29 Yes Inject 1 applicatio n into the skin every other week Kiah macias Semaglutide -Weight Management (Wegovy) 0.25 MG/0.5ML subcutaneou s Solution Auto-inject or 08-29 00:00: 00 Yes [id number] .25mg Inject 0.25 mg into the skin once a week. Kiah macias Metoprolol Tartrate (LOPRESSOR) 25 MG oral Tablet 2022-07 00:00: 00 Yes [id number] 25mg Take 1 tablet (25 mg total) by mouth daily. Kiah macias Dupixent 300 MG/2ML subcutaneou s Solution Pen-injecto r 10-04 00:00: 00 Yes Kiah macias FLUTICASONE PROPIONATE, NASAL, 50 MCG/ACT nasal Suspension 09-27 15:40: 25 Yes 1{spray } Use 1 spray in each nostril daily Kiah macias Fexofenadin e (SIA) 180 MG oral Tablet 09-27 15:40: 25 Yes 1{tbl} Take 1 tablet by mouth Kiah macias Omeprazole 10 MG oral Delayed Release Capsule 09-27 15:40: 25 Yes 10mg Take 10 mg by mouth daily Kiah macias Dupilumab 100 MG/0.67ML subcutaneou s Solution Prefilled Syringe 09-27 15:40: 25 Yes Inject 1 applicatio n into the skin every other week Kiah macias Metoprolol Tartrate (LOPRESSOR) 25 MG oral Tablet 09-27 00:00: 00 Yes [id number] 25mg Take 1 tablet (25 mg total) by mouth daily Kiah macias Semaglutide (0.25 or 0.5 mg/dose) 2 mg/1.5 mL SQ Solution Pen-Injecto r 09-27 00:00: 00 Yes [id number] .25mg Inject 0.25 mg into the skin once a week Kiah macias Paroxetine HCl 10 MG oral Tablet 09-27 00:00: 00 Yes [id number] 10mg Take 1 tablet (10 mg total) by mouth every morning Kiah macias Semaglutide (0.25 or 0.5 mg/dose) 2 mg/1.5 mL SQ Solution Pen-Injecto r 09-27 00:00: 00 Yes [id number] .25mg Inject 0.25 mg into the skin once a week Kiah macias Paroxetine HCl 10 MG oral Tablet 09-27 00:00: 00 08-29 00:00 :00 No [id number] 10mg Take 1 tablet (10 mg total) by mouth every morning Kiah macias Doxycycline Monohydrate 100 MG oral Capsule 09-17 00:00: 00 Yes TAKE ONE (1) CAPSULE(S) BY MOUTH EVERY TWELVE HOURS FOR 7 DAYS. Kiah macias Doxycycline Monohydrate 100 MG oral Capsule 09-17 00:00: 00 08-29 00:00 :00 No TAKE ONE (1) CAPSULE(S) BY MOUTH EVERY TWELVE HOURS FOR 7 DAYS. Kiah macias FLUTICASONE PROPIONATE, NASAL, 50 MCG/ACT nasal Suspension 08-30 09:31: 54 Yes 1{spray } Use 1 spray in each nostril daily Kiah macias Fexofenadin e (SIA) 180 MG oral Tablet 08-30 09:31: 54 Yes 1{tbl} Take 1 tablet by mouth Kiah macias Omeprazole 10 MG oral Delayed Release Capsule 08-30 09:31: 54 Yes 10mg Take 10 mg by mouth daily Kiah macias Dupilumab 100 MG/0.67ML subcutaneou s Solution Prefilled Syringe 08-30 09:31: 54 Yes Inject 1 applicatio n into the skin every other week Kiah macias Metoprolol Tartrate (LOPRESSOR) 25 MG oral Tablet 08-23 00:00: 00 Yes [id number] 25mg Take 1 tablet (25 mg total) by mouth 2 times daily Kiah macias Metoprolol Tartrate (LOPRESSOR) 25 MG oral Tablet 08-23 00:00: 00 Yes [id number] 25mg Take 1 tablet (25 mg total) by mouth 2 times daily Kiah macias Metoprolol Tartrate (LOPRESSOR) 25 MG oral Tablet 08-23 00:00: 00 09-27 00:00 :00 No [id number] 25mg Take 1 tablet (25 mg total) by mouth 2 times daily Kiah macias Metoprolol Tartrate (LOPRESSOR) 25 MG oral Tablet 08-23 00:00: 00 08-23 00:00 :00 No [id number] 25mg Take 1 tablet (25 mg total) by mouth 2 times daily Kiah macias Neomycin-Po lymyxin-Dex ameth 3.5-72502-2 .1 ophthalmic Ointment 08-22 00:00: 00 Yes INSTILL ONE-HALF (1/2) INCH IN BOTH EYES EVERY TWELVE HOURS FOR 7 DAYS. Kiah macias Neomycin-Po lymyxin-Dex ameth 3.5-26308-3 .1 ophthalmic Ointment 08-22 00:00: 00 Yes INSTILL ONE-HALF (1/2) INCH IN BOTH EYES EVERY TWELVE HOURS FOR 7 DAYS. Kiah macias Neomycin-Po lymyxin-Dex ameth 3.5-45450-6 .1 ophthalmic Ointment 08-22 00:00: 00 09-27 00:00 :00 No INSTILL ONE-HALF (1/2) INCH IN BOTH EYES EVERY TWELVE HOURS FOR 7 DAYS. Kiah macias Dupilumab 100 MG/0.67ML subcutaneou s Solution Prefilled Syringe 08-16 16:46: 34 Yes Inject 1 applicatio n into the skin every other week Kiah macias Omeprazole 10 MG oral Delayed Release Capsule 08-16 16:32: 01 Yes 10mg Take 10 mg by mouth daily Kiah macias Omeprazole 10 MG oral Delayed Release Capsule 08-16 16:32: 01 Yes 10mg Take 10 mg by mouth daily Kiah macias Fenofibrate 145 MG oral Tablet 08-16 16:26: 28 08-16 00:00 :00 No fenofibrat e nanocrysta llized 145 mg tablet TAKE ONE (1) TABLET(S) BY MOUTH ONCE A DAY. Kiah macias Chlorthalid one 50 MG oral Tablet 08-16 16:26: 28 08-16 00:00 :00 No chlorthali done 50 mg tablet TAKE ONE (1) TABLET(S) BY MOUTH ONCE A DAY. Kiah macias Aspirin 81 MG oral Tablet Delayed Response 08-16 16:23: 06 08-16 00:00 :00 No 81mg Take 81 mg by mouth daily Kiah macias Acetylcyste ine 600 MG oral Capsule 08-16 16:21: 44 08-16 00:00 :00 No 2{capsu le} 2 capsules daily Kiah macias Cetirizine (ZYRTEC) 10 MG oral Tablet 08-16 16:21: 28 08-16 00:00 :00 No 10mg Take 10 mg by mouth daily Kiah macias Doxycycline Hyclate 100 MG oral Tablet 08-16 16:21: 22 08-16 00:00 :00 No doxycyclin e hyclate 100 mg tablet TAKE ONE (1) TABLET(S) BY MOUTH TWICE A DAY. Kiah macias Famotidine (PEPCID) 20 MG oral tablet 08-16 16:21: 16 08-16 00:00 :00 No famotidine 20 mg tablet TAKE ONE (1) TABLET(S) BY MOUTH TWICE A DAY. Kiah macias Fexofenadin e (Sia Allergy) 180 MG oral Tablet 08-16 16:21: 02 08-16 00:00 :00 No Sia Allergy Kiah macias Paroxetine HCl 20 MG oral Tablet 08-16 16:20: 09 08-16 00:00 :00 No 1{tbl} Take 1 tablet by mouth Kiah macias predniSONE (DELTASONE) 20 MG oral tablet 08-16 16:19: 13 08-16 00:00 :00 No prednisone 20 mg tablet TAKE ONE (1) TABLET(S) BY MOUTH TWICE A DAY FOR 5 DAYS. Kiah macias Fexofenadin e (SIA) 180 MG oral Tablet 08-16 16:08: 53 Yes 1{tbl} Take 1 tablet by mouth Kiah macias Fexofenadin e (SIA) 180 MG oral Tablet 08-16 16:08: 53 Yes 1{tbl} Take 1 tablet by mouth Kiah macias Fenofibrate 145 MG oral Tablet 08-16 00:00: 00 Yes [id number] 145mg Take 1 tablet (145 mg total) by mouth daily Kiah macias Fenofibrate 145 MG oral Tablet 08-16 00:00: 00 Yes [id number] 145mg Take 1 tablet (145 mg total) by mouth daily Kiah macias Fenofibrate 145 MG oral Tablet 08-16 00:00: 00 Yes [id number] 145mg Take 1 tablet (145 mg total) by mouth daily Kiah macias Chlorthalid one 25 MG oral Tablet 0 2 00:00: 00 Yes [id number] 25mg Take 1 tablet (25 mg total) by mouth daily Kiah macias Fenofibrate 145 MG oral Tablet 0 2 00:00: 00 Yes [id number] 145mg Take 1 tablet (145 mg total) by mouth daily Kiah mcaias Fenofibrate 145 MG oral Tablet 0 08-16 00:00: 00 Yes [id number] 145mg Take 1 tablet (145 mg total) by mouth daily Kiah macias Ciprofloxac in HCl 0.3 % ophthalmic Solution 08-16 00:00: 00 09-27 00:00 :00 No [id number] 1[drp] Apply 1 drop to eye every 4 (four) hours for 5 days Kiah macias Ciprofloxac in HCl 0.3 % ophthalmic Solution 08-16 00:00: 00 08-31 05:59 :00 No [id number] 1[drp] Apply 1 drop to eye every 4 (four) hours for 5 days Kiah macias Chlorthalid one 25 MG oral Tablet 08-16 00:00: 00 08-23 00:00 :00 No [id number] 25mg Take 1 tablet (25 mg total) by mouth daily Kiah macias Ciprofloxac in HCl 0.3 % ophthalmic Solution 08-16 00:00: 00 08-22 05:59 :00 No [id number] 1[drp] Apply 1 drop to eye every 4 (four) hours for 5 days Kiah macias FLUTICASONE PROPIONATE, NASAL, 50 MCG/ACT nasal Suspension 08-15 09:26: 37 Yes 1{spray } Use 1 spray in each nostril daily Kiah macias FLUTICASONE PROPIONATE, NASAL, 50 MCG/ACT nasal Suspension 08-15 09:26: 37 Yes 1{spray } Use 1 spray in each nostril daily Kiah macias Ondansetron (ZOFRAN) 8 MG oral TABLET DISPERSIBLE 08-07 00:00: 00 08-16 00:00 :00 No TAKE ONE (1) TABLET(S) BY MOUTH TWICE A DAY NEEDED FOR NAUSEA AND VOMITING. Kiah macias Cefdinir 300 MG oral Capsule 08-07 00:00: 00 08-16 00:00 :00 No TAKE ONE (1) CAPSULE(S) BY MOUTH EVERY TWELVE HOURS. Kiah macias doxycycline hyclate 100 mg tablet TAKE ONE (1) TABLET(S) BY MOUTH TWICE A DAY FOR 2 WEEKS. doxycycline hyclate 100 mg tablet TAKE ONE (1) TABLET(S) BY MOUTH TWICE A DAY FOR 2 WEEKS. 2020-07 00:00: 00 No doxycyclin e hyclate 100 mg tablet TAKE ONE (1) TABLET(S) BY MOUTH TWICE A DAY FOR 2 WEEKS. [facility] casirivimab -imdevimab (REGEN-COV (EUA)) injection (CO-FORMULA TION) 1,200 mg 2020-07 23:15: 00 06-23 21:50 :00 No [id number] 1200mg 1,200 mg, Subcutaneo us, ONCE, 1 dose, On Faviola 06/23/21 at 1715, [facility] cetirizine 10 mg tablet Take 1 tablet every day by oral route for 90 days. cetirizine 10 mg tablet Take 1 tablet every day by oral route for 90 days. No 1 Q1D cetirizine 10 mg tablet Take 1 tablet every day by oral route for 90 days. [facility] chlorthalid one 50 mg tablet TAKE ONE (1) TABLET(S) BY MOUTH ONCE A DAY. chlorthalid one 50 mg tablet TAKE ONE (1) TABLET(S) BY MOUTH ONCE A DAY. No chlorthali done 50 mg tablet TAKE ONE (1) TABLET(S) BY MOUTH ONCE A DAY. [facility] doxycycline hyclate 100 mg tablet Take 1 tablet twice a day by oral route for 10 days. doxycycline hyclate 100 mg tablet Take 1 tablet twice a day by oral route for 10 days. No 1 BID doxycyclin e hyclate 100 mg tablet Take 1 tablet twice a day by oral route for 10 days. [facility] famotidine 20 mg tablet Take 1 tablet twice a day by oral route for 90 days. famotidine 20 mg tablet Take 1 tablet twice a day by oral route for 90 days. No 1 BID famotidine 20 mg tablet Take 1 tablet twice a day by oral route for 90 days. [facility] fenofibrate nanocrystal lized 145 mg tablet TAKE ONE (1) TABLET(S) BY MOUTH ONCE A DAY. fenofibrate nanocrystal lized 145 mg tablet TAKE ONE (1) TABLET(S) BY MOUTH ONCE A DAY. No fenofibrat e nanocrysta llized 145 mg tablet TAKE ONE (1) TABLET(S) BY MOUTH ONCE A DAY. [facility] prednisone 20 mg tablet Take 1 tablet twice a day by oral route for 5 days. prednisone 20 mg tablet Take 1 tablet twice a day by oral route for 5 days. No 1 BID prednisone 20 mg tablet Take 1 tablet twice a day by oral route for 5 days. [facility] acetylcyste ine 600 mg capsule Take 2 capsules twice a day by oral route. acetylcyste ine 600 mg capsule Take 2 capsules twice a day by oral route. No 2capsul e(s) BID acetylcyst eine 600 mg capsule Take 2 capsules twice a day by oral route. [facility] azithromyci n 500 mg tablet TAKE ONE (1) TABLET(S) BY MOUTH ONCE A DAY FOR 5 DAYS. azithromyci n 500 mg tablet TAKE ONE (1) TABLET(S) BY MOUTH ONCE A DAY FOR 5 DAYS. No azithromyc in 500 mg tablet TAKE ONE (1) TABLET(S) BY MOUTH ONCE A DAY FOR 5 DAYS. [facility] betamethaso ne dipropionat e 0.05 % topical cream APPLY TO RASH ON HANDS TWICE DAILY FOR 2 WEEKS PER MONTH. OCCLUDE AT NIGHTTIME. betamethaso ne dipropionat e 0.05 % topical cream APPLY TO RASH ON HANDS TWICE DAILY FOR 2 WEEKS PER MONTH. OCCLUDE AT NIGHTTIME. No betamethas one dipropiona te 0.05 % topical cream APPLY TO RASH ON HANDS TWICE DAILY FOR 2 WEEKS PER MONTH. OCCLUDE AT NIGHTTIME. [facility] chlorthalid one 25 mg tablet TAKE ONE (1) TABLET(S) BY MOUTH ONCE A DAY. chlorthalid one 25 mg tablet TAKE ONE (1) TABLET(S) BY MOUTH ONCE A DAY. No chlorthali done 25 mg tablet TAKE ONE (1) TABLET(S) BY MOUTH ONCE A DAY. [facility] clobetasol 0.05 % topical ointment APPLY A THIN LAYER TO THE HANDS TWICE A DAY FOR 2 WEEKS/MONTH . clobetasol 0.05 % topical ointment APPLY A THIN LAYER TO THE HANDS TWICE A DAY FOR 2 WEEKS/MONTH . No clobetasol 0.05 % topical ointment APPLY A THIN LAYER TO THE HANDS TWICE A DAY FOR 2 WEEKS/HENRI H. [facility] fenofibrate nanocrystal lized 145 mg tablet TAKE ONE (1) TABLET(S) BY MOUTH ONCE A DAY. fenofibrate nanocrystal lized 145 mg tablet TAKE ONE (1) TABLET(S) BY MOUTH ONCE A DAY. No fenofibrat e nanocrysta llized 145 mg tablet TAKE ONE (1) TABLET(S) BY MOUTH ONCE A DAY. [facility] ivermectin 3 mg tablet TAKE TWO (2) TABLET(S) BY MOUTH TWICE A DAY FOR 5 DAYS. ivermectin 3 mg tablet TAKE TWO (2) TABLET(S) BY MOUTH TWICE A DAY FOR 5 DAYS. No ivermectin 3 mg tablet TAKE TWO (2) TABLET(S) BY MOUTH TWICE A DAY FOR 5 DAYS. [facility] prednisone 20 mg tablet TAKE ONE (1) TABLET(S) BY MOUTH TWICE A DAY FOR 5 DAYS. prednisone 20 mg tablet TAKE ONE (1) TABLET(S) BY MOUTH TWICE A DAY FOR 5 DAYS. No prednisone 20 mg tablet TAKE ONE (1) TABLET(S) BY MOUTH TWICE A DAY FOR 5 DAYS. [facility] propranolol 40 mg tablet Take 1 tablet twice a day by oral route for 30 days. propranolol 40 mg tablet Take 1 tablet twice a day by oral route for 30 days. No propranolo l 40 mg tablet Take 1 tablet twice a day by oral route for 30 days. [facility] chlorthalid one 25 mg tablet TAKE ONE (1) TABLET(S) BY MOUTH TWICE A DAY. chlorthalid one 25 mg tablet TAKE ONE (1) TABLET(S) BY MOUTH TWICE A DAY. No chlorthali done 25 mg tablet TAKE ONE (1) TABLET(S) BY MOUTH TWICE A DAY. [facility] chlorthalid one 50 mg tablet Take 1 tablet every day by oral route for 90 days. chlorthalid one 50 mg tablet Take 1 tablet every day by oral route for 90 days. No 1 Q1D chlorthali done 50 mg tablet Take 1 tablet every day by oral route for 90 days. [facility] fenofibrate nanocrystal lized 145 mg tablet Take 1 tablet every day by oral route for 90 days. fenofibrate nanocrystal lized 145 mg tablet Take 1 tablet every day by oral route for 90 days. No 1 Q1D fenofibrat e nanocrysta llized 145 mg tablet Take 1 tablet every day by oral route for 90 days. [facility] chlorthalid one 25 mg tablet TAKE ONE (1) TABLET(S) BY MOUTH TWICE A DAY. chlorthalid one 25 mg tablet TAKE ONE (1) TABLET(S) BY MOUTH TWICE A DAY. No chlorthali done 25 mg tablet TAKE ONE (1) TABLET(S) BY MOUTH TWICE A DAY. [facility] chlorthalid one 50 mg tablet Take 1 tablet every day by oral route for 90 days. chlorthalid one 50 mg tablet Take 1 tablet every day by oral route for 90 days. No 1 Q1D chlorthali done 50 mg tablet Take 1 tablet every day by oral route for 90 days. [facility] fenofibrate nanocrystal lized 145 mg tablet Take 1 tablet every day by oral route for 90 days. fenofibrate nanocrystal lized 145 mg tablet Take 1 tablet every day by oral route for 90 days. No 1 Q1D fenofibrat e nanocrysta llized 145 mg tablet Take 1 tablet every day by oral route for 90 days. [facility] acetylcyste ine 600 mg capsule Take 2 capsules every day by oral route. acetylcyste ine 600 mg capsule Take 2 capsules every day by oral route. No 2capsul e(s) Q1D acetylcyst eine 600 mg capsule Take 2 capsules every day by oral route. [facility] Sia Allergy Sia Allergy No Sia Allergy [facility] Vital Signs Vital Name Observation Time Observation Value Comments S ource Systolic blood pressure 2023-08-29 19:48:00 144 mm[Hg] Kiah Seybo ld - External Diastolic blood pressure 2023-08-29 19:48:00 84 mm[Hg] Kiah Seybo ld - External Heart rate 2023-08-29 19:39:00 82 /min Kelse y Seybold - External Body temperature 2023-08-29 19:39:00 36.72 Kelsey Kiah Seybold - External Respiratory rate 2023-08-29 19:39:00 18 /min Kiah Seybold - External Body height 2023-08-29 19:39:00 188 cm Sera ey Seybold - External Body weight 2023-08-29 19:39:00 121.224 kg Sera ey Seybold - External BMI 2023-08-29 19:39:00 34.31 kg/m2 Sera ey Seybold - External Oxygen saturation in Arterial blood by Pulse oximetry 2023-08-29 19:39:00 98 /min Kiah Seybo ld - External Systolic blood pressure 2022-09-27 20:37:00 119 mm[Hg] Kiah Seybo ld - External Diastolic blood pressure 2022-09-27 20:37:00 80 mm[Hg] Kiah Seybo ld - External Heart rate 2022-09-27 20:37:00 69 /min Kelse y Seybold - External Body temperature 2022-09-27 20:37:00 36.67 Kelsey Kiah Seybold - External Respiratory rate 2022-09-27 20:37:00 14 /min Kiah Seybold - External Body height 2022-09-27 20:37:00 188 cm Sera ey Seybold - External Body weight 2022-09-27 20:37:00 118.389 kg Sera ey Seybold - External BMI 2022-09-27 20:37:00 33.51 kg/m2 Sera ey Seybold - External Oxygen saturation in Arterial blood by Pulse oximetry 2022-09-27 20:37:00 99 /min Kiah Seybo ld - External Systolic blood pressure 2022-08-30 15:30:00 128 mm[Hg] Kiah Seybo ld - External Diastolic blood pressure 2022-08-30 15:30:00 74 mm[Hg] Kiah Seybo ld - External Heart rate 2022-08-30 15:30:00 67 /min Kelse y Seybold - External Body temperature 2022-08-30 15:30:00 36.28 Kelsey Kiah Seybold - External Respiratory rate 2022-08-30 15:30:00 14 /min Kiah Seybold - External Body height 2022-08-30 15:30:00 188 cm Sera ey Seybold - External Body weight 2022-08-30 15:30:00 118.48 kg Sera ey Seybold - External BMI 2022-08-30 15:30:00 33.54 kg/m2 Sera ey Seybold - External Oxygen saturation in Arterial blood by Pulse oximetry 2022-08-30 15:30:00 99 /min Kiah Seybo ld - External Systolic blood pressure 2022-08-23 22:12:00 137 mm[Hg] Kiah Seybo ld - External Diastolic blood pressure 2022-08-23 22:12:00 90 mm[Hg] Kiah Seybo ld - External Heart rate 2022-08-23 22:12:00 122 /min Kelse y Seybold - External Body temperature 2022-08-23 22:12:00 36.94 Kelsey Kiah Seybold - External Respiratory rate 2022-08-23 22:12:00 14 /min Kiah Seybold - External Body height 2022-08-23 22:12:00 188 cm Sera ey Seybold - External Body weight 2022-08-23 22:12:00 115.939 kg Sera ey Seybold - External BMI 2022-08-23 22:12:00 32.82 kg/m2 Sera ey Seybold - External Oxygen saturation in Arterial blood by Pulse oximetry 2022-08-23 22:12:00 95 /min Kiah Patiñoybo ld - External Systolic blood pressure 2022-08-16 22:05:00 141 mm[Hg] Kiah ybo ld - External Diastolic blood pressure 2022-08-16 22:05:00 87 mm[Hg] Kiah Patiñoybo ld - External Heart rate 2022-08-16 22:05:00 107 /min Jimbo y Seybold - External Body temperature 2022-08-16 22:05:00 36.56 Kelsey Kiah Seybold - External Respiratory rate 2022-08-16 22:05:00 14 /min Kiah Patiñoybold - External Body height 2022-08-16 22:05:00 188 cm Sera ey Seybold - External Body weight 2022-08-16 22:05:00 119.659 kg Sera ey Seybold - External BMI 2022-08-16 22:05:00 33.87 kg/m2 Sera ey Seybold - External Oxygen saturation in Arterial blood by Pulse oximetry 2022-08-16 22:05:00 99 /min Kiah Patiñoybo ld - External BP Diastolic 2021-10-06 00:00:00 83 mm[Hg] [facility] Height 2021-10-06 00:00:00 74 [in_i] [facility] BMI (Body Mass Index) 2021-10-06 00:00:00 28.3 kg/m2 [facility] BP Systolic 2021-10-06 00:00:00 130 mm[Hg] [facility] Body Weight 2021-10-06 00:00:00 3529.6 [oz_av] [facility] BP Diastolic 2021-09-09 00:00:00 78 mm[Hg] [facility] Height 2021-09-09 00:00:00 74 [in_i] [facility] BMI (Body Mass Index) 2021-09-09 00:00:00 30.7 kg/m2 [facility] BP Systolic 2021-09-09 00:00:00 124 mm[Hg] [facility] Body Weight 2021-09-09 00:00:00 3827.2 [oz_av] [facility] BP Diastolic 2021-07-06 00:00:00 101 mm[Hg] [facility] Height 2021-07-06 00:00:00 74 [in_i] [facility] BMI (Body Mass Index) 2021-07-06 00:00:00 34.4 kg/m2 [facility] BP Systolic 2021-07-06 00:00:00 144 mm[Hg] [facility] Body Weight 2021-07-06 00:00:00 4288 [oz_av] [facility] Systolic blood pressure 2021-06-23 22:40:00 166 mm[Hg] [facility] Diastolic blood pressure 2021-06-23 22:40:00 106 mm[Hg] [facility] Heart rate 2021-06-23 22:40:00 92 /min [facility] Body temperature 2021-06-23 22:40:00 37.11 Kelsey [facility] Respiratory rate 2021-06-23 22:40:00 18 /min [facility] Oxygen saturation in Arterial blood by Pulse oximetry 2021-06-23 22:40:00 95 /min [facility] Body height 2021-06-23 21:51:00 188 cm [facility] Body weight 2021-06-23 21:51:00 113.399 kg [facility] BMI 2021-06-23 21:51:00 32.10 kg/m2 [facility] Procedures Procedure Date / Time Performed Performing Clinician Source [id number] CONSENT 2021-06-23 06:01:00 Doctor Sonia signed, [place] [facility] Exc Tr-ext B9+Cortney 0.5 Cm< S [facility] Cholecystectomy [facility] Removal of Spleen Total [facility] Plan of Care Planned Activity Planned Date Details Comments Source Diagnostic Test Pending 2021-09-09 00:00:00 CBC w/ auto diff [code = CBC w/ auto diff] [facility] Diagnostic Test Pending 2021-09-09 00:00:00 CMP, serum or plasma [code = CMP, serum or plasma] [facility] Diagnostic Test Pending 2021-09-09 00:00:00 TSH, serum or plasma [code = TSH, serum or plasma] [facility] Diagnostic Test Pending 2021-09-09 00:00:00 lipid panel, serum [code = lipid panel, serum] [facility] Diagnostic Test Pending 2021-09-09 00:00:00 vitamin D, 25-hydroxy, total, serum [code = vitamin D, 25-hydroxy, total, serum] [facility] Diagnostic Test Pending 2021-09-09 00:00:00 testosterone, total, serum [code = testosterone, total, serum] [facility] Instructions [facility] Encounters Start Date/Time End Date/Time Encounter Type Admission Type Attending [facility] Care Facility Care Department Encounter ID Source 2023-08-29 14:00:00 2023-08-29 14:00:00 Outpatient CLARK PEREZ [id number] [facility] 2023-08-29 11:00:00 2023-08-29 11:00:00 Outpatient CLARK PEREZ [id number] [facility] 2023-08-28 14:45:00 2023-08-28 14:45:00 Outpatient CLARK PEREZ [id number] [facility] 2023-06-11 00:00:00 2023-06-11 00:00:00 Outpatient CIHNEDU CARDOZA [id number] K[facility] 2023-02-01 00:00:00 2023-02-01 00:00:00 Outpatient CHINEDU CARDOZA [id number] Kiah [facility] 2022-12-05 00:00:00 2022-12-05 00:00:00 Outpatient CHINEDU CARDOZA [id number] Kiah [facility] 2022-11-27 16:15:00 2022-11-27 16:15:00 Outpatient PREZAS, CHINEDU RODRIGUEZ KIAH [id number] Kiah Patiñoybleela 2022-11-21 00:00:00 2022-11-21 00:00:00 Outpatient PREZAS, CHINEDU KIAH KIAH [id number] Kiah Patiñoybleela 2022-10-25 15:45:00 2022-10-25 15:45:00 Outpatient PREZAS, CHINEDU KIAH RODRIGUEZ [id number] [facility] 2022-10-13 00:00:00 2022-10-13 00:00:00 Outpatient PREZAS, CHINEDU KIAH RODRIGUEZ [id number] [facility] 2022-09-27 15:45:00 2022-09-27 15:45:00 Outpatient PREZAS, CHINEDU KIAH RODRIGUEZ [id number] [facility] 2022-09-20 00:00:00 2022-09-20 00:00:00 Outpatient PREZAS, CHINEDU KIAH RODRIGUEZ [id number] [facility] 2022-09-13 16:00:00 2022-09-13 16:00:00 Outpatient HUNDL, BARI KIAH RODRIGUEZ [id number] [facility] 2022-09-04 00:00:00 2022-09-04 00:00:00 Outpatient PREZAS, CHINEDU KIAH RODRIGUEZ [id number] [facility] 2022-08-30 09:30:00 2022-08-30 09:30:00 Outpatient PREZAS, CHINEDU KIAH RODRIGUEZ [id number] [facility] 2022-08-29 00:00:00 2022-08-29 00:00:00 Outpatient PREZAS, CHINEDU KIAH RODRIGUEZ [id number] [facility] 2022-08-28 00:00:00 2022-08-28 00:00:00 Outpatient PREZAS, CHINEDU RODRIGUEZ [id number] Kiah Seybold 2022-08-25 08:00:00 2022-08-25 08:00:00 Outpatient LABJessica RODRIGUEZ [id number] Kiah Seybold 2022-08-25 00:00:00 2022-08-25 00:00:00 Outpatient CHINEDU CARDOZA [id number] Kiah [facility] 2022-08-23 16:15:00 2022-08-23 16:15:00 Outpatient CHINEDU CARDOZA [id number] Kiah [facility] 2022-08-22 00:00:00 2022-08-22 00:00:00 Outpatient CHINEDU CARDOZA [id number] Kiah [facility] 2022-08-16 16:00:00 2022-08-16 16:00:00 Outpatient CHINEDU CARDOZA [id number] Kiah [facility] 2022-01-04 05:46:00 2022-01-04 05:46:00 Outpatient CHRETIEN_F [facility] [id number] 2021-10-06 05:24:00 2021-10-06 05:24:00 Outpatient [facility]ATERS[facility] [id number] [facility] 2021-10-06 00:00:00 2021-10-06 00:00:00 Outpatient Amanda Segundo [facility] [id number] 2021-10-06 00:00:00 2021-10-06 00:00:00 Amanda JET Segundo-PIPE TESTER-C: [address] [place] [address], [facility] [address] [place] [phone] , Ph. [facility] [id number] [facility] 2021-09-09 10:04:00 2021-09-09 10:04:00 Outpatient [facility] [id number] [facility] 2021-09-09 00:00:00 2021-09-09 00:00:00 Outpatient Amanda Segundo [facility] [id number] 2021-09-09 00:00:00 2021-09-09 00:00:00 Outpatient Amanda Segundo [facility] [id number] 2021-09-09 00:00:00 2021-09-09 00:00:00 Amanda SegundoJET-PIPE TESTER-C: [address] [facility] [facility], [address], [place] [address] , Ph. [facility] [id number] [facility] 2021-07-26 07:10:00 2021-07-26 07:10:00 Outpatient [facility] [id number] [facility] 2021-07-06 05:38:00 2021-07-06 05:38:00 Outpatient [facility]ERS[facility] [id number] [facility] 2021-07-06 00:00:00 2021-07-06 00:00:00 Estee Izaguirre, MSN, WRAPPING MACHINE TENDER, DIE CUTTER DIAMOND-C: [address], [facility] [address], [place] [address] , Ph. [place], Estee Izaguirre, MSN, DIE CUTTER DIAMOND-C [id number] [facility] 2021-07-06 00:00:00 2021-07-06 00:00:00 Outpatient Estee Izaguirre [facility] [id number] [id number] 10:52:00 2021-06-28 10:52:00 Outpatient [facility] [id number] [facility] 2021-06-28 00:00:00 2021-06-28 00:00:00 Amanda Sanya WRAPPING MACHINE TENDER-PIPE TESTER-C: [address], [address], [place] [address] , Ph. [facility] [id number] [facility] 2021-06-23 16:00:00 2021-06-23 17:00:00 Nurse Visit Therapy, Escobar CovSam [facility] [id number] [facility] 2021-06-23 16:00:00 2021-06-23 16:00:00 Outpatient SAM [facility] [id number] [facility] 2021-06-23 00:00:00 2021-06-23 00:00:00 Orders Only Doctor Unassigned, [place] [facility] [id number] [facility] 2020-05-28 02:17:00 2020-05-28 02:17:00 Outpatient SCHAUBROECK _L [facility] [id number] [facility] Results Test Description Test Time Test Comments Results Result Co mments Source [facility]em[facility].total [facility] Blood 2021-09-10 00:00:00* Test Item Value Reference Range Interpretation Comme nts Hemoglobin A1c/Hemoglobin.to adelina in Blood (test code = 4548-4) 5.7 % 4.8-5.6 H [facility] [Mass/volume] in Serum or Plasma 2021-09-10 00:00:00* Test Item Value Reference Range Interpretation Comme nts Testosterone [Mass/volume] i n Serum or Plasma (test code = 2986-8) 452 NG/dL 264-916 [facility] free [Mass/volume] in Serum or [id number] 00:00:00* Test Item Value Reference Range Interpretation Comme nts Thyroxine (T4) free [Mass/vo lume] in Serum or Plasma (test code = 3024-7) 1.50 NG/dL 0.82-1.77 [facility] [Units/volume] in Serum or Plasma by Detection limit <= 0.005 mIU/[id number] 00:00:00* Test Item Value Reference Range Interpretation Comme nts Thyrotropin [Units/volume] i n Serum or Plasma by Detection limit <= 0.005 mIU/L (test code = 32796-0) 2.430 uIU/mL 0.450-4.500 [facility]25-Hydroxyvitamin D3+25-Hydroxyvitamin D2 [Mass/volume] in Serum or [id number] 00:00:00* Test Item Value Reference Range Interpretation Comme nts 25-Hydroxyvitamin D3+25-Hydroxyvitamin D2 [Mass/volume] in Serum or Plasma (test code = 86141-4) 48.4 NG/mL 30.0-100.0 [facility] W Auto Differential panel - [id number] 00:00:00* Test Item Value Reference Range Interpretation Comme nts Leukocytes [#/volume] in Blo od by Automated count (test code = 6690-2) 7.5 x10e3/uL 3.4-10.8 Erythrocytes [#/volume] in Blood by Automated count (test code = 789-8) 5.21 x10e6/uL 4.14-5.80 Hemoglobin [Mass/volume] in Blood (test code = 718-7) 15.8 g/dL 13.0-17.7 Hematocrit [Volume Fraction] of Blood by Automated count (test code = 4544-3) 47.2 % 37.5-51.0 Erythrocyte mean corpuscular volume [Entitic volume] by Automated count (test code = 787-2) 91 fL 79-97 MCH [Entitic mass] by Automa osman count (test code = 785-6) 30.3 pg 26.6-33.0 Erythrocyte mean corpuscular hemoglobin concentration [Mass/volume] by Automated count (test code = 786-4) 33.5 g/dL 31.5-35.7 Erythrocyte distribution wid th [Ratio] by Automated count (test code = 788-0) 13.6 % 11.6-15.4 Platelets [#/volume] in Bloo d by Automated count (test code = 777-3) 449 x10e3/uL 150-450 Neutrophils/100 leukocytes i n Blood by Automated count (test code = 770-8) 33 % not estab. Lymphocytes/100 leukocytes i n Blood by Automated count (test code = 736-9) 53 % not estab. Monocytes/100 leukocytes in Blood by Automated count (test code = 5905-5) 11 % not estab. Eosinophils/100 leukocytes i n Blood by Automated count (test code = 713-8) 2 % not estab. Basophils/100 leukocytes in Blood by Automated count (test code = 706-2) 1 % not estab. immature cells (test code = immature cells) electric frying pan repairer Neutrophils [#/volume] in Bl ood by Automated count (test code = 751-8) 2.5 x10e3/uL 1.4-7.0 Lymphocytes [#/volume] in Bl ood by Automated count (test code = 731-0) 3.9 x10e3/uL 0.7-3.1 H Monocytes [#/volume] in Bloo d by Automated count (test code = 742-7) 0.8 x10e3/uL 0.1-0.9 Eosinophils [#/volume] in Bl ood by Automated count (test code = 711-2) 0.2 x10e3/uL 0.0-0.4 Basophils [#/volume] in Bloo d by Automated count (test code = 704-7) 0.1 x10e3/uL 0.0-0.2 Immature granulocytes/100 leukocytes in Blood by Automated count (test code = 22032-4) 0 % not estab. Immature granulocytes [#/volume] in Blood by Automated count (test code = 48593-4) 0.0 x10e3/uL 0.0-0.1 Nucleated erythrocytes/100 leukocytes [Ratio] in Blood by Automated count (test code = 35225-3) electric frying pan repairer Morphology [Interpretation] in Blood Narrative (test code = 32873-9) electric frying pan repairer [facility] 2000 panel - Serum or [id number] 00:00:00* Test Item Value Reference Range Interpretation Comme nts Glucose [Mass/volume] in Ser um or Plasma (test code = 2345-7) 101 mg/dL 65-99 H Urea nitrogen [Mass/volume] in Serum or Plasma (test code = 3094-0) 17 mg/dL 6-20 Creatinine [Mass/volume] in Serum or Plasma (test code = 2160-0) 1.11 mg/dL 0.76-1.27 eGFR (test code = eGFR) 88 mL/min/1.73 >59 Urea nitrogen/Creatinine [Ma ss Ratio] in Serum or Plasma (test code = 3097-3) 15 9-20 Sodium [Moles/volume] in Ser um or Plasma (test code = 2951-2) 140 mmol/L 134-144 Potassium [Moles/volume] in Serum or Plasma (test code = 2823-3) 4.2 mmol/L 3.5-5.2 Chloride [Moles/volume] in Serum or Plasma (test code = 207-0) 96 mmol/L 96-106 Carbon dioxide, total [Moles/volume] in Serum or Plasma (test code = 2027-9) 25 mmol/L 20-29 Calcium [Mass/volume] in Ser um or Plasma (test code = 57996-0) 9.8 mg/dL 8.7-10.2 Protein [Mass/volume] in Ser um or Plasma (test code = 2885-2) 7.3 g/dL 6.0-8.5 Albumin [Mass/volume] in Ser um or Plasma (test code = 1751-7) 4.6 g/dL 4.0-5.0 Globulin [Mass/volume] in Serum by calculation (test code = 84953-7) 2.7 g/dL 1.5-4.5 Albumin/Globulin [Mass Ratio ] in Serum or Plasma (test code = 1759-0) 1.7 1.2-2.2 Bilirubin.total [Mass/volume ] in Serum or Plasma (test code = 1974-) 0.5 mg/dL 0.0-1.2 Alkaline phosphatase [Enzymatic activity/volume] in Serum or Plasma (test code = 6768-6) 41 IU/L 44-121 L Aspartate aminotransferase [Enzymatic activity/volume] in Serum or Plasma (test code = 192-8) 20 IU/L 0-40 Alanine aminotransferase [Enzymatic activity/volume] in Serum or Plasma (test code = 174-6) 27 IU/L 0-44 [facility] Notes Date/Time Note Provider Source 2023-08-29 13:48:32 [id number] H/[id number] T13:48:32 Chief ComplaintPatient presents withBack PainStarted on left side about 4 week ago went away then is now on the right side feels like pressure from back to rightsidePaula L KEVIN EspinalN [id number] DackZG7321-38-09N55:50:37Nurse [id number]. [id number] for patient dgkv78373-5Pgiwq NoteLNNARRATIVEFormatted C-CDA narrative textAurora Health Care [facility] Center[address] [facility].[id number]:50:[id number] 2.3.15|[id number]. [id number] [facility]"
[2023-08-29 15:11] LABS: Absolute Lymphocytes (CBC) 5.3 K/uL (0.7-4.9); Lymphocytes % 36.6 % (15.3-44.8); MCV 92.5 fL (80-100); MPV 7.3 fL (7.6-11.3); Platelets 522 thou/uL (152-406); RBC Red Blood Cell Count 4.54 M/uL (4.33-5.43)
[2023-08-29 15:16] LABS: Specific Gravity 1.022 (1.005-1.030); Urine Bacteria <20 /HPF (<20); Urine Bilirubin NEGATIVE (Negative); Urine Blood Negative (Negative); Urine Clarity Turbid (Clear); Urine Color Yellow (Yellow); Urine Glucose NEGATIVE (Negative); Urine Mucus 4+ /HPF (None Seen); Urine Protein NEGATIVE (Negative); Urine RBC <5 /HPF (None Seen); Urine Urobilinogen Normal (Normal); Urine pH 5.5 (5.0-7.0)
[2023-08-29 15:32] LABS: Albumin 3.8 g/dL (3.4-5.0); Bilirubin Total 0.5 mg/dL (0.2-1.0); Potassium 4.2 mEq/L (3.5-5.1); Protein, Total 8.1 g/dL (6.4-8.2)
--- NOTE | 2023-08-29 15:54 | RAD REPORT ---
EXAM DESCRIPTION: CTAbdomen Pelvis W Contrast - 08/29/2023 3:46 pm CLINICAL HISTORY: R sided flank pain COMPARISON: Abdomen Pelvis W Contrast dated 05/15/2017 TECHNIQUE: CT of the abdomen and pelvis was performed. All CT scans are performed using dose optimization technique as appropriate and may include automated exposure control or mA/KV adjustment according to patient size. FINDINGS: Lower chest: No acute abnormality. Liver: Hepatomegaly steatosis . Biliary: Cholecystectomy. Stomach: No significant focal abnormality. Duodenum: No significant focal abnormality. Pancreas: No significant abnormality. Spleen: No significant abnormality. Adrenal: No suspicious lesions. Kidney/ureter: No hydronephrosis. No renal calculi. Retroperitoneum: No retroperitoneal adenopathy. Vascular: No aneurysm. Bowel: No significant focal abnormality. No appendicitis . Peritoneum: No ascites or free air. Small fat containing left inguinal hernia. Bladder: Grossly unremarkable. Reproductive: No adnexal masses. Bones: No acute fracture. Other: n/a IMPRESSION: No acute intra-abdominal or pelvic finding. Normal appendix. Cholecystectomy. Hepatomega ly with steatosis.
--- NOTE | 2023-08-29 16:34 | ER ---
Nurse's Notes [facility] Name: Rodrigo Hou Age: 38 yrs Sex: Male : 1985 Arrival Date: 08/29/2023 Time: 14:21 Bed 9 Private MD: Diagnosis: Low back pain Presentation: 08/29 14:33 Chief complaint: Patient states: BACK PAIN RADIATING TO STOMACH STARTED 4 WEEKS DENIES db INJURY STATES IS NOT GETTING BETTER FEELS WORSE TODAY. DOCTOR APPOINTMENT TODAY AND WAS SENT TO ED BY PHYSICIAN. STATES DID NOT TAKE BP MEDICATIONS. Coronavirus screen: Vaccine status: Patient reports receiving the 2nd dose of the covid vaccine. Client denies travel out of the [place] in the last 14 days. At this time, the client does not indicate any symptoms associated with coronavirus-19. Ebola Screen: Patient negative for fever greater than or equal to 101.5 degrees Fahrenheit, and additional compatible Ebola Virus Disease symptoms Patient denies exposure to infectious person. Patient denies travel to an Ebola-affected area in the 21 days before illness onset. No symptoms or risks identified at this time. Initial Sepsis Screen: Does the patient meet any 2 criteria? No. Patient's initial sepsis screen is negative. Does the patient have a suspected source of infection? No. Patient's initial sepsis screen is negative. Risk Assessment: Do you want to hurt yourself or someone else? Patient reports no desire to harm self or others. Onset of symptoms was August 29, 2023. 14:33 Method Of Arrival: Ambulatory db 14:33 Acuity: AQUILES 3 db Triage Assessment: 14:36 General: Appears in no apparent distress. uncomfortable, Behavior is calm, cooperative. db Pain: Complains of pain in back and abdomen. Neuro: Level of Consciousness is awake, alert, obeys commands, Oriented to person, place, time, situation. Respiratory: Airway is patent Respiratory effort is even, unlabored, Respiratory pattern is regular, symmetrical. GI: Abdomen is distended, Reports upper abdominal pain. Musculoskeletal: Circulation, motion, and sensation intact. Capillary refill < 3 seconds, Range of motion: intact in all extremities. 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 - Social history:: Smoking status: Patient denies any tobacco usage or history of. Screenin:15 [facility] ED Fall Risk Assessment (Adult) History of falling in the last 3 months, db including since admission No falls in past 3 months (0 pts) Confusion or Disorientation No (0 pts) Intoxicated or Sedated No (0 pts) Impaired Gait No (0 pts) Mobility Assist Device Used No (0 pt) Altered Elimination No (0 pt) Score/Fall Risk Level 0 - 2 = Low Risk Oriented to surroundings, Maintained a safe environment. Abuse screen: Denies threats or abuse. Denies injuries from another. Nutritional screening: No deficits noted. Tuberculosis screening: No symptoms or risk factors identified. Assessment: 15:15 Reassessment: Patient appears in no apparent distress at this time. Patient and/or db family updated on plan of care and expected duration. Pain level reassessed. Patient is alert, oriented x 3, equal unlabored respirations, skin warm/dry/pink. Vital Signs: 14:33 BP 149 / 113; Pulse 110; Resp 18; Temp 97.5; Pulse Ox 97% ; Weight 119.75 kg; Height 6 db ft. 2 in. ; Pain 10/10; 15:15 BP 142 / 91; Pulse 101; Resp 18; Pulse Ox 100% on R/A; me1 17:01 BP 149 / 99; Pulse 83; Resp 16; Pulse Ox 98% on R/A; me1 14:33 Body Mass Index 33.90 (119.75 kg, 187.96 cm) db 14:33 Pain Scale: Adult db ED Course: 14:24 Patient arrived in ED. ra3 14:29 Cisco Carlisle MD is Attending Physician. ec2 14:35 Triage completed. db 14:36 Arm band placed on right wrist. db 15:00 Urine collected: clean catch specimen, clear. db 15:04 Initial lab(s) drawn, by mi, sent to lab. Inserted saline lock: 22 gauge in left db antecubital area, using aseptic technique. Blood collected. 15:29 Palmira Lennon, RN is Primary Nurse. me1 15:32 Patient has correct armband on for positive identification. Bed in low position. Call me1 light in reach. Provided Education on: POC. Verbalized understanding. . 15:32 No provider procedures requiring assistance completed. me1 15:47 CT Abd/Pelvis - IV Contrast Only In Process Unspecified. EDMS 17:01 IV discontinued, intact, bleeding controlled, No redness/swelling at site. Pressure me1 dressing applied. Administered Medications: 15:11 Drug: NS 0.9% IV 1000 ml IV at 1 bolus Per protocol; 1000 mL bolus Route: IV; Rate: 1 me1 bolus; Site: left antecubital; 17:02 Follow up: IV Status: Completed infusion me1 15:11 Drug: Ketorolac IVP 15 mg IVP once Route: IVP; Site: left antecubital; me1 16:51 Follow up: Response: No adverse reaction; Pain is decreased me1 15:11 Drug: morphine IVP or IV 4 mg IVP once over 4 mins Route: IVP; Infused Over: 4 mins; me1 Site: left antecubital; 16:51 Follow up: Response: No adverse reaction; Pain is decreased me1 15:11 Drug: Ondansetron IVP 4 mg IVP once; over 2 minutes Route: IVP; Site: left antecubital; me1 15:30 Follow up: Response: No adverse reaction me1 16:45 Drug: Methocarbamol PO 1000 mg PO once Route: PO; me1 17:02 Follow up: Response: No adverse reaction me1 Medication: 15:33 VIS not applicable for this client. me1 Outcome: 16:34 Discharge ordered by . ec2 17:01 Discharged to home ambulatory, with significant other, me1 17:01 Condition: stable 17:01 Discharge instructions given to patient, Instructed on discharge instructions, follow up and referral plans. medication usage, Demonstrated understanding of instructions, follow-up care, medications, Prescriptions given X 1, 17:01 Patient left the ED. me1 Signatures: Dispatcher [employer] Tressa Grover RN RN Palmira Salvador RN RN me1 Cisco Carlisle MD MD ec2 Promise Bowden 3 Corrections: (The following items were deleted from the chart) 14:36 14:33 Chief complaint: Patient states: BACK PAIN RADIATING TO STOMACH STARTED 4 WEEKS db DENIES INJURY STATES IS NOT GETTING BETTER FEELS WORSE TODAY. STATES DID NOT TAKE BP MEDICATIONS db 14:37 14:33 Chief complaint: Patient states: BACK PAIN RADIATING TO STOMACH STARTED 4 WEEKS db DENIES INJURY STATES IS NOT GETTING BETTER FEELS WORSE TODAY. DOCTOR APPOINTMENT TODAY AND WAS SENT TO ED BY PHYSICIAN. STATES DID NOT TAKE BP MEDICATIONS db 15:30 14:33 Chief complaint: Patient states: BACK PAIN RADIATING TO STOMACH STARTED 4 WEEKS me1 DENIES INJURY STATES IS NOT GETTING BETTER FEELS WORSE TODAY. DOCTOR APPOINTMENT TODAY AND WAS SENT TO ED BY PHYSICIAN. STATES DID NOT TAKE BP MEDICATIONS db
--- NOTE | 2023-08-29 16:34 | EDPHYS ---
Physician Documentation [facility] Name: Rodrigo Hou Age: 38 yrs Sex: Male : 1985 Arrival Date: 08/29/2023 Time: 14:21 Bed 9 Private MD: ED Physician Cisco Carlisle HPI: 08/29 14:42 This 38 yrs old Male presents to ER via Ambulatory with complaints of Back ec2 Pain. 14:42 Patient arrives today for evaluation of right flank pain. Patient reports the right ec2 flank pain is been ongoing for the past several weeks. Patient reports no nausea or vomiting, no urinary problems. Reports pain radiates into the abdomen. Reports no issues with p.o. intake, no worsening with p.o.. 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 - Social history:: Smoking status: Patient denies any tobacco usage or history of. ROS: 14:42 Constitutional: as per hpi ec2 Exam: 14:42 Constitutional: GEN: NAD Head: atraumatic Eyes: EOMI Ears: External ears are ec2 normal. CV: tachycardia LUNGS: no respiratory distress ABD: Soft, tender in the right upper quadrant, tender in the right flank, no guarding, no rigidity SKIN: no evidence of rashes, specifically no vesicular rash over the problematic area MSK: no evidence of trauma NEURO: moves all extremities equally Vital Signs: 14:33 BP 149 / 113; Pulse 110; Resp 18; Temp 97.5; Pulse Ox 97% ; Weight 119.75 kg; Height 6 db ft. 2 in. ; Pain 10/10; 15:15 BP 142 / 91; Pulse 101; Resp 18; Pulse Ox 100% on R/A; me1 17:01 BP 149 / 99; Pulse 83; Resp 16; Pulse Ox 98% on R/A; me1 14:33 Body Mass Index 33.90 (119.75 kg, 187.96 cm) db 14:33 Pain Scale: Adult db MDM: 14:41 Patient medically screened. ec2 14:42 Data reviewed: vital signs, nurses notes. ED course: Patient arrives today for ec2 evaluation of right flank pain. Examination remarkable for abdominal findings as noted above. Will obtain lab work, treat the patient's symptoms and obtain CT imaging. Evaluating for process such as ureteral stone, lower suspicion for pancreatitis or gallbladder pathology. . 15:49 ED course: CBC shows leukocytosis at 14.6, metabolic profile with appropriate ec2 electrolytes, GFR of 87 noted. Urine is noninfectious appearing. Pending CT imaging . 16:33 ED course: CT imaging shows no evidence of ureteral stone or infection or acute ec2 actionable process. Will discharge home and have him follow-up with a primary care doctor. Return precautions given.. 08/29 14:41 Order name: CBC with Diff; Complete Time: 15:48 ec2 08/29 14:41 Order name: CMP; Complete Time: 15:48 ec2 08/29 14:41 Order name: UAM; Complete Time: 15:48 ec2 08/29 14:41 Order name: CT Abd/Pelvis - IV Contrast Only; Complete Time: 15:57 ec2 Administered Medications: 15:11 Drug: NS 0.9% IV 1000 ml IV at 1 bolus Per protocol; 1000 mL bolus Route: IV; Rate: 1 me1 bolus; Site: left antecubital; 17:02 Follow up: IV Status: Completed infusion me1 15:11 Drug: Ketorolac IVP 15 mg IVP once Route: IVP; Site: left antecubital; me1 16:51 Follow up: Response: No adverse reaction; Pain is decreased me1 15:11 Drug: morphine IVP or IV 4 mg IVP once over 4 mins Route: IVP; Infused Over: 4 mins; me1 Site: left antecubital; 16:51 Follow up: Response: No adverse reaction; Pain is decreased me1 15:11 Drug: Ondansetron IVP 4 mg IVP once; over 2 minutes Route: IVP; Site: left antecubital; me1 15:30 Follow up: Response: No adverse reaction me1 16:45 Drug: Methocarbamol PO 1000 mg PO once Route: PO; me1 17:02 Follow up: Response: No adverse reaction me1 Disposition Summary: 08/29/23 16:34 Discharge Ordered Notes: Location: Home ec2 Condition: Stable ec2 Diagnosis - Low back pain ec2 Followup: ec2 - With: Private Physician - When: - Reason: Re-evaluation by your physician Discharge Instructions: - Discharge Summary Sheet ec2 - Acute Back Pain, Adult ec2 Forms: - Medication Reconciliation Form ec2 - Thank You Letter ec2 - Antibiotic Education ec2 - Prescription Opioid Use ec2 - Patient Portal Instructions ec2 - Leadership Thank You Letter ec2 Prescriptions: - methocarbamol 500 mg Oral tablet - take 2 tablets ORAL route 4 times per day; 30 tablet; Refills: 0, Product ec2 Selection Permitted Signatures: Dispatcher [employer] Tressa Grover RN RN db Palmira Lennon RN RN me1 Cisco Carlisle MD MD ec2 Corrections: (The following items were deleted from the chart) 14:43 14:42 Constitutional: GEN: NAD Head: atraumatic Eyes: EOMI Ears: External ears are ec2 normal. CV: regular rate LUNGS: no respiratory distress ABD: Soft, tender in the right upper quadrant, tender in the right flank, no guarding, no rigidity SKIN: no evidence of rashes, specifically no vesicular rash over the problematic area MSK: no evidence of trauma NEURO: moves all extremities equally ec2
[2023-08-29 17:07] VITALS: TEMP 97.5
[2023-08-29 17:25] VITALS: BP 149/99; O2SAT 98
== END ==
LOC: ER 14:21
DX: M54.50 Low back pain, unspecified (principal); Z88.1 Allergy status to other antibiotic agents; Z88.2 Allergy status to sulfonamides
CPT/HCPCS: 85025; 81001; 36415; 80053; 74177; Q9967; J2405; J7030